=== PATIENT | female | born 1930 | race Caucasian/White ===

== ENCOUNTER 2017-10-17 09:57 | Inpatient (IN) | payer MEDICARE ==
[~2017-10-17] VITALS: Ht 165.1 cm; Wt 82.7 kg
[~2017-10-17 09:57] MED LIST: APIX5TAB3 PO; CALC-1197 PO; CALC0.2535 PO; CHOL10002 PO; CYAN250L PO; FURO20TA4 PO; GLUC-192 PO; LEVO112T52 PO; LISI2.5T2 PO; MAGN400C PO; METO-539 PO; MULT-1074 PO; OMEG-43 PO; OMEP40CA37 PO; POTA10TA21 PO; SIMV20TA5 PO
[2017-10-17 11:07] LABS: BASOPHILS % (AUTO) 0 % (0-1); EOSINOPHILS # (AUTO) 0.1 X10'3 (0-0.9); HEMOGLOBIN 9.5 g/dl (12.0-16.0); LYMPHOCYTES # (AUTO) 0.3 X10'3 (1.1-4.8); LYMPHOCYTES % (AUTO) 4.9 % (21-51); MEAN CORPUSCULAR HEMOGLOBIN 29.8 PG (27.0-31.0); MEAN CORPUSCULAR VOLUME 87.7 FL (78-98); MEAN PLATELET VOLUME 7.4 FL (7.4-10.4); MONOCYTES # (AUTO) 0.3 X10'3 (0-0.9); MONOCYTES % (AUTO) 5.3 % (2-12); NEUTROPHILS % (AUTO) 88.8 % (42-75); PLATELET COUNT 128 X10'3 (140-440); RED BLOOD COUNT 3.19 X10'6 (4.20-5.60); RED CELL DISTRIBUTION WIDTH 17.8 % (11.5-14.5); WHITE BLOOD COUNT 5.7 X10'3 (4.5-11.0)
[2017-10-17 11:30] LABS: ALANINE AMINOTRANSFERASE 13 U/L (12-78); ALBUMIN 1.8 G/DL (3.4-5.0); ALBUMIN/GLOBULIN RATIO 0.5 (1.1-1.5); ALKALINE PHOSPHATASE 109 IU/L (46-116); ANION GAP 9 (8-16); ASPARTATE AMINO TRANSFERASE 32 U/L (10-37); BILIRUBIN,TOTAL 1.1 MG/DL (0.1-1.0); BLOOD UREA NITROGEN 21 MG/DL (7-18); BUN/CREATININE RATIO 14.5 (6.6-38.0); CALCIUM 7.3 MG/DL (8.5-10.1); CHLORIDE 98 MMOL/L (99-107); CREATININE 1.45 MG/DL (0.40-0.90); GLUCOSE 172 MG/DL (70-104); SODIUM 134 MMOL/L (135-145); TOTAL CARBON DIOXIDE 27.5 MMOL/L (24-32); TOTAL PROTEIN 5.2 G/DL (6.4-8.2); eGFR 34 ML/MIN
[2017-10-17 11:31] LABS: TROPONIN I 0.19 NG/ML (0.0-0.05)
[2017-10-17] MEDS ORDERED: magnesium 2GM in 50ml NS 50 ML IV ONE (11:40)
[2017-10-17] MEDS ORDERED: potassium Cl 20 mEq SR tablet PO ONE (11:40)
[2017-10-17] MEDS ORDERED: potassium Cl 10 mEq/100mL bag IV ONE (11:40)
[2017-10-17] MEDS ORDERED: normal saline 1000ML IV soln IVB ONE (11:40)
[2017-10-17] MEDS ORDERED: furosemide 10 MG/1 ML 10ml inj IV ONE (11:40)
[2017-10-17] MEDS ORDERED: potassium 10mEq/100ml NS w/LIDOcaine (10mg/bag) IV ONE (11:50)
[2017-10-17 12:17] LABS: CLARITY,URINE Clear (Clear); COLOR,URINE Yellow (Yellow); GLUCOSE, URINE Negative (Neg); KETONES,URINE Negative (Neg); LEUKOCYTE ESTERASE ,URINE Negative (Neg); NITRITES, URINE Negative (Neg); OCCULT BLOOD,URINE Negative (Neg); PH,URINE 6.5 (4.8-8.0); PROTEIN,URINE Negative (Neg)
[2017-10-17 12:21] LABS: UA COLLECTION TYPE CLN CATCH MIDSTREAM
[2017-10-17] MEDS: K and/or MAG REPLACEMENT MC SCH (13:00)
[2017-10-17] MEDS ORDERED: mag hydrox/Alum hydrox/simeth 30ml oral suspension PO PRN (13:00)
[2017-10-17] MEDS ORDERED: magnesium hydroxide 30ml (MOM) UD suspension PO PRN (13:00)
[2017-10-17] MEDS ORDERED: magnesium Cl slow-release 64mg tablet PO PRN (13:00)
[2017-10-17] MEDS ORDERED: magnesium 4gm in 100ml NS 100 ML IV PRN (13:00)
[2017-10-17] MEDS ORDERED: potassium Cl 40MEQ/NS 500ml 500 ML IV PRN ×2 (13:00)
[2017-10-17] MEDS ORDERED: potassium Cl 20 mEq SR tablet PO PRN (13:00)
[2017-10-17] MEDS ORDERED: magnesium 2GM in 50ml NS 50 ML IV PRN (13:00)
[2017-10-17 21:00] VITALS: BP 98/53
[2017-10-17] MEDS: calcium carbonate/vitamin D3 tablet PO SCH (21:26)
[2017-10-17] MEDS: furosemide 40mg/4ml inj IV SCH (21:26)
[2017-10-17] MEDS: atorvastatin 10mg tablet PO SCH (21:27)
[2017-10-17] MEDS: apixaban 5mg tablet PO SCH (21:49)
[2017-10-17 22:46] VITALS: BP 88/40
[2017-10-17 23:01] VITALS: BP 84/41
[2017-10-18] VITALS (7 sets, daily range): BP systolic 84–114; BP diastolic 40–72
[2017-10-18] MEDS: potassium Cl 20 mEq SR tablet PO PRN ×2 (00:06→04:17)
[2017-10-18 06:48] LABS: HEMATOCRIT 29.5 % (35.0-45.0); HEMOGLOBIN 10.1 g/dl (12.0-16.0); MEAN CORPUSCULAR HEMOGLOBIN 29.2 PG (27.0-31.0); MEAN CORPUSCULAR HGB CONC 34.1 % (33.0-36.5); MEAN CORPUSCULAR VOLUME 85.6 FL (78-98); MEAN PLATELET VOLUME 8.4 FL (7.4-10.4); PLATELET COUNT 114 X10'3 (140-440); RED BLOOD COUNT 3.45 X10'6 (4.20-5.60); RED CELL DISTRIBUTION WIDTH 18.4 % (11.5-14.5); WHITE BLOOD COUNT 5.3 X10'3 (4.5-11.0)
[2017-10-18 07:08] LABS: ALBUMIN 1.7 G/DL (3.4-5.0); ANION GAP 8 (8-16); BLOOD UREA NITROGEN 23 MG/DL (7-18); BUN/CREATININE RATIO 18.7 (6.6-38.0); CALCIUM 7.2 MG/DL (8.5-10.1); CHLORIDE 101 MMOL/L (99-107); CREATININE 1.23 MG/DL (0.40-0.90); GLUCOSE 89 MG/DL (70-104); MAGNESIUM 1.9 MG/DL (1.5-2.4); SODIUM 136 MMOL/L (135-145); TOTAL CARBON DIOXIDE 27.5 MMOL/L (24-32); eGFR 41 ML/MIN
[2017-10-18] MEDS: vitamin D (cholecalciferol) 1,000 unit tablet PO SCH (07:53)
[2017-10-18] MEDS: cyanocobalamin 500mcg tablet PO SCH (07:53)
[2017-10-18] MEDS: magnesium oxide 400mg tablet PO SCH (07:53)
[2017-10-18] MEDS: calcitriol 0.25mcg capsule PO SCH (07:53)
[2017-10-18] MEDS: levoTHYROXINE 100mcg tablet PO SCH (07:53)
[2017-10-18] MEDS: pantoprazole 40mg Tablet.DR PO SCH (07:53)
[2017-10-18] MEDS: calcium carbonate/vitamin D3 tablet PO SCH ×2 (07:53→19:11)
[2017-10-18] MEDS: furosemide 40mg/4ml inj IV SCH ×2 (07:54→19:11)
[2017-10-18] MEDS: apixaban 5mg tablet PO SCH ×2 (07:54→19:11)
[2017-10-18] MEDS: K and/or MAG REPLACEMENT MC SCH (08:00)
[2017-10-18] MEDS: lisinopril 2.5mg tablet PO SCH (08:00)
[2017-10-18] MEDS: metoprolol succinate 25mg (24-HOUR) SR. Tablet PO SCH (08:00)
[2017-10-18] MEDS: POTASSIUM CITRATE 10 MEQ PO SCH (08:00)
[2017-10-18] MEDS: enoxaparin 40mg/0.4ml syringe SQ SCH (08:19)
[2017-10-18] MEDS: atorvastatin 10mg tablet PO SCH (19:11)
[2017-10-19 03:00] VITALS: BP 101/48
[2017-10-19 05:59] LABS: HEMATOCRIT 27.6 % (35.0-45.0); HEMOGLOBIN 9.4 g/dl (12.0-16.0); MEAN CORPUSCULAR HEMOGLOBIN 29.2 PG (27.0-31.0); MEAN CORPUSCULAR HGB CONC 34.2 % (33.0-36.5); MEAN CORPUSCULAR VOLUME 85.5 FL (78-98); MEAN PLATELET VOLUME 7.9 FL (7.4-10.4); PLATELET COUNT 103 X10'3 (140-440); RED BLOOD COUNT 3.23 X10'6 (4.20-5.60); RED CELL DISTRIBUTION WIDTH 18.7 % (11.5-14.5); WHITE BLOOD COUNT 3.8 X10'3 (4.5-11.0)
[2017-10-19 06:10] LABS: ALBUMIN 1.5 G/DL (3.4-5.0); ANION GAP 4 (8-16); BLOOD UREA NITROGEN 21 MG/DL (7-18); BUN/CREATININE RATIO 17.6 (6.6-38.0); CALCIUM 7.3 MG/DL (8.5-10.1); CHLORIDE 101 MMOL/L (99-107); CREATININE 1.19 MG/DL (0.40-0.90); GLUCOSE 94 MG/DL (70-104); MAGNESIUM 1.7 MG/DL (1.5-2.4); POTASSIUM 3.6 MMOL/L (3.5-5.1); SODIUM 134 MMOL/L (135-145); TOTAL CARBON DIOXIDE 28.8 MMOL/L (24-32); eGFR 43 ML/MIN
[2017-10-19 07:00] VITALS: BP 100/54
[2017-10-19] MEDS: calcitriol 0.25mcg capsule PO SCH (07:16)
[2017-10-19] MEDS: calcium carbonate/vitamin D3 tablet PO SCH ×2 (07:16→20:38)
[2017-10-19] MEDS: levoTHYROXINE 100mcg tablet PO SCH (07:16)
[2017-10-19] MEDS: pantoprazole 40mg Tablet.DR PO SCH (07:16)
[2017-10-19] MEDS: apixaban 5mg tablet PO SCH ×2 (07:16→20:38)
[2017-10-19] MEDS: magnesium oxide 400mg tablet PO SCH (07:16)
[2017-10-19] MEDS: cyanocobalamin 500mcg tablet PO SCH (07:16)
[2017-10-19] MEDS: furosemide 40mg/4ml inj IV SCH ×2 (07:16→20:38)
[2017-10-19] MEDS: vitamin D (cholecalciferol) 1,000 unit tablet PO SCH (07:16)
[2017-10-19] MEDS: metoprolol succinate 25mg (24-HOUR) SR. Tablet PO SCH (08:00)
[2017-10-19] MEDS: lisinopril 2.5mg tablet PO SCH (08:00)
[2017-10-19] MEDS: enoxaparin 40mg/0.4ml syringe SQ SCH (08:00)
[2017-10-19] MEDS: K and/or MAG REPLACEMENT MC SCH (08:00)
[2017-10-19] MEDS: POTASSIUM CITRATE 10 MEQ PO SCH (08:00)
[2017-10-19 11:00] VITALS: BP 110/51
[2017-10-19 15:00] VITALS: BP 97/58
[2017-10-19 19:00] VITALS: BP 98/43
[2017-10-19] MEDS: atorvastatin 10mg tablet PO SCH (20:39)
[2017-10-19 23:00] VITALS: BP 103/52
[2017-10-20 03:00] VITALS: BP 104/57
[2017-10-20 07:00] VITALS: BP 115/51
[2017-10-20 07:02] LABS: HEMATOCRIT 31.5 % (35.0-45.0); HEMOGLOBIN 10.8 g/dl (12.0-16.0); MEAN CORPUSCULAR HEMOGLOBIN 29.6 PG (27.0-31.0); MEAN CORPUSCULAR HGB CONC 34.3 % (33.0-36.5); MEAN CORPUSCULAR VOLUME 86.3 FL (78-98); MEAN PLATELET VOLUME 8.4 FL (7.4-10.4); PLATELET COUNT 92 X10'3 (140-440); RED BLOOD COUNT 3.65 X10'6 (4.20-5.60); RED CELL DISTRIBUTION WIDTH 18.7 % (11.5-14.5); WHITE BLOOD COUNT 5.5 X10'3 (4.5-11.0)
[2017-10-20 07:22] LABS: ALBUMIN 1.8 G/DL (3.4-5.0); ANION GAP 6 (8-16); BLOOD UREA NITROGEN 19 MG/DL (7-18); CALCIUM 7.6 MG/DL (8.5-10.1); CHLORIDE 98 MMOL/L (99-107); CREATININE 1.19 MG/DL (0.40-0.90); GLUCOSE 96 MG/DL (70-104); MAGNESIUM 1.7 MG/DL (1.5-2.4); POTASSIUM 4.1 MMOL/L (3.5-5.1); SODIUM 134 MMOL/L (135-145); TOTAL CARBON DIOXIDE 30.1 MMOL/L (24-32); eGFR 43 ML/MIN
[2017-10-20] MEDS: cyanocobalamin 500mcg tablet PO SCH (07:33)
[2017-10-20] MEDS: magnesium oxide 400mg tablet PO SCH (07:33)
[2017-10-20] MEDS: vitamin D (cholecalciferol) 1,000 unit tablet PO SCH (07:33)
[2017-10-20] MEDS: calcium carbonate/vitamin D3 tablet PO SCH ×2 (07:33→19:37)
[2017-10-20] MEDS: furosemide 40mg/4ml inj IV SCH ×2 (07:33→19:37)
[2017-10-20] MEDS: calcitriol 0.25mcg capsule PO SCH (07:33)
[2017-10-20] MEDS: pantoprazole 40mg Tablet.DR PO SCH (07:33)
[2017-10-20] MEDS: levoTHYROXINE 100mcg tablet PO SCH (07:34)
[2017-10-20] MEDS: apixaban 5mg tablet PO SCH ×2 (07:34→19:37)
[2017-10-20] MEDS: metoprolol succinate 25mg (24-HOUR) SR. Tablet PO SCH (08:00)
[2017-10-20] MEDS: K and/or MAG REPLACEMENT MC SCH (08:00)
[2017-10-20] MEDS: POTASSIUM CITRATE 10 MEQ PO SCH (08:00)
[2017-10-20] MEDS: lisinopril 2.5mg tablet PO SCH (08:00)
[2017-10-20 11:00] VITALS: BP 108/63
[2017-10-20 15:00] VITALS: BP 104/48
[2017-10-20 18:00] VITALS: BP 113/41
[2017-10-20] MEDS: ondansetron/PF 4mg/2ml inj IV PRN (18:10)
[2017-10-20] MEDS: atorvastatin 10mg tablet PO SCH (19:37)
[2017-10-20 22:00] VITALS: BP 106/44
[2017-10-21] VITALS (8 sets, daily range): BP systolic 88–127; BP diastolic 43–58
[2017-10-21 06:08] LABS: HEMATOCRIT 28.6 % (35.0-45.0); HEMOGLOBIN 9.7 g/dl (12.0-16.0); MEAN CORPUSCULAR HEMOGLOBIN 29.3 PG (27.0-31.0); MEAN CORPUSCULAR VOLUME 86.2 FL (78-98); MEAN PLATELET VOLUME 8.5 FL (7.4-10.4); PLATELET COUNT 78 X10'3 (140-440); RED BLOOD COUNT 3.31 X10'6 (4.20-5.60); RED CELL DISTRIBUTION WIDTH 18.6 % (11.5-14.5); WHITE BLOOD COUNT 4.6 X10'3 (4.5-11.0)
[2017-10-21 07:17] LABS: ALBUMIN 1.6 G/DL (3.4-5.0); ANION GAP 5 (8-16); BLOOD UREA NITROGEN 19 MG/DL (7-18); BUN/CREATININE RATIO 16.5 (6.6-38.0); CALCIUM 7.1 MG/DL (8.5-10.1); CHLORIDE 98 MMOL/L (99-107); CREATININE 1.15 MG/DL (0.40-0.90); GLUCOSE 91 MG/DL (70-104); MAGNESIUM 1.6 MG/DL (1.5-2.4); POTASSIUM 3.9 MMOL/L (3.5-5.1); SODIUM 133 MMOL/L (135-145); TOTAL CARBON DIOXIDE 29.9 MMOL/L (24-32); eGFR 44 ML/MIN
[2017-10-21] MEDS: vitamin D (cholecalciferol) 1,000 unit tablet PO SCH (07:56)
[2017-10-21] MEDS: apixaban 5mg tablet PO SCH ×2 (07:56→21:27)
[2017-10-21] MEDS: magnesium oxide 400mg tablet PO SCH (07:56)
[2017-10-21] MEDS: cyanocobalamin 500mcg tablet PO SCH (07:57)
[2017-10-21] MEDS: levoTHYROXINE 100mcg tablet PO SCH (07:57)
[2017-10-21] MEDS: calcitriol 0.25mcg capsule PO SCH (07:57)
[2017-10-21] MEDS: pantoprazole 40mg Tablet.DR PO SCH (07:58)
[2017-10-21] MEDS: calcium carbonate/vitamin D3 tablet PO SCH ×2 (07:58→21:26)
[2017-10-21] MEDS: acetaminophen 325mg tablet PO PRN ×2 (07:58→21:28)
[2017-10-21] MEDS: metoprolol succinate 25mg (24-HOUR) SR. Tablet PO SCH (08:00)
[2017-10-21] MEDS: K and/or MAG REPLACEMENT MC SCH (08:00)
[2017-10-21] MEDS: POTASSIUM CITRATE 10 MEQ PO SCH (08:00)
[2017-10-21] MEDS: lisinopril 2.5mg tablet PO SCH (08:00)
[2017-10-21] MEDS: furosemide 40mg/4ml inj IV SCH ×2 (08:00→20:00)
[2017-10-21] MEDS: atorvastatin 10mg tablet PO SCH (21:27)
[2017-10-22 02:00] VITALS: BP 126/48
[2017-10-22 06:10] LABS: HEMATOCRIT 29.3 % (35.0-45.0); MEAN CORPUSCULAR HEMOGLOBIN 29.3 PG (27.0-31.0); MEAN CORPUSCULAR HGB CONC 34.2 % (33.0-36.5); MEAN CORPUSCULAR VOLUME 85.7 FL (78-98); MEAN PLATELET VOLUME 8.9 FL (7.4-10.4); PLATELET COUNT 70 X10'3 (140-440); RED BLOOD COUNT 3.43 X10'6 (4.20-5.60); RED CELL DISTRIBUTION WIDTH 18.9 % (11.5-14.5); WHITE BLOOD COUNT 3.4 X10'3 (4.5-11.0)
[2017-10-22 06:29] LABS: ALBUMIN 1.6 G/DL (3.4-5.0); ANION GAP 5 (8-16); BLOOD UREA NITROGEN 22 MG/DL (7-18); BUN/CREATININE RATIO 18.2 (6.6-38.0); CALCIUM 7.7 MG/DL (8.5-10.1); CHLORIDE 98 MMOL/L (99-107); CREATININE 1.21 MG/DL (0.40-0.90); GLUCOSE 81 MG/DL (70-104); MAGNESIUM 1.8 MG/DL (1.5-2.4); POTASSIUM 3.8 MMOL/L (3.5-5.1); SODIUM 135 MMOL/L (135-145); TOTAL CARBON DIOXIDE 31.6 MMOL/L (24-32); eGFR 42 ML/MIN
[2017-10-22 06:35] VITALS: BP 83/48
[2017-10-22] MEDS: K and/or MAG REPLACEMENT MC SCH (07:09)
[2017-10-22] MEDS: pantoprazole 40mg Tablet.DR PO SCH (07:30)
[2017-10-22] MEDS: POTASSIUM CITRATE 10 MEQ PO SCH (08:00)
[2017-10-22] MEDS: lisinopril 2.5mg tablet PO SCH (08:00)
[2017-10-22] MEDS: magnesium oxide 400mg tablet PO SCH (08:00)
[2017-10-22] MEDS: metoprolol succinate 25mg (24-HOUR) SR. Tablet PO SCH (08:00)
[2017-10-22] MEDS: furosemide 40mg/4ml inj IV SCH ×2 (08:00→19:54)
[2017-10-22] MEDS: apixaban 5mg tablet PO SCH ×2 (10:31→19:55)
[2017-10-22] MEDS: vitamin D (cholecalciferol) 1,000 unit tablet PO SCH (10:32)
[2017-10-22] MEDS: levoTHYROXINE 100mcg tablet PO SCH (10:33)
[2017-10-22] MEDS: calcitriol 0.25mcg capsule PO SCH (10:33)
[2017-10-22] MEDS: calcium carbonate/vitamin D3 tablet PO SCH ×2 (10:33→19:55)
[2017-10-22] MEDS: cyanocobalamin 500mcg tablet PO SCH (10:34)
[2017-10-22 11:00] VITALS: BP 101/59
[2017-10-22 15:00] VITALS: BP 110/63
[2017-10-22 18:00] VITALS: BP 98/58
[2017-10-22] MEDS: vancomycin/NS 1 GM ADD-VANTAGE 250 ML IV SCH ×2 (19:52→22:36)
[2017-10-22] MEDS: atorvastatin 10mg tablet PO SCH (21:00)
[2017-10-22 22:00] VITALS: BP 100/43
[2017-10-23] MEDS ORDERED: aztreonam 1,000MG vial ONE (01:45)
[2017-10-23] MEDS: aztreonam inj. 1,000 MG in normal saline 100ml IV soln 100 ML IV SCH ×2 (01:45→08:03)
[2017-10-23 02:00] VITALS: BP 94/47
[2017-10-23] MEDS: acetaminophen 325mg tablet PO PRN (04:18)
[2017-10-23 05:47] LABS: BASOPHILS % (AUTO) 0.2 % (0-1); EOSINOPHILS # (AUTO) 0.1 X10'3 (0-0.9); EOSINOPHILS % (AUTO) 1.2 % (0-6); HEMATOCRIT 28.1 % (35.0-45.0); HEMOGLOBIN 9.7 g/dl (12.0-16.0); LYMPHOCYTES # (AUTO) 0.4 X10'3 (1.1-4.8); LYMPHOCYTES % (AUTO) 8.4 % (21-51); MEAN CORPUSCULAR HEMOGLOBIN 29.7 PG (27.0-31.0); MEAN CORPUSCULAR HGB CONC 34.7 % (33.0-36.5); MEAN CORPUSCULAR VOLUME 85.6 FL (78-98); MEAN PLATELET VOLUME 9.1 FL (7.4-10.4); MONOCYTES # (AUTO) 0.3 X10'3 (0-0.9); NEUTROPHILS # (AUTO) 3.6 X10'3 (1.8-7.7); NEUTROPHILS % (AUTO) 83.2 % (42-75); PLATELET COUNT 72 X10'3 (140-440); RED BLOOD COUNT 3.28 X10'6 (4.20-5.60); RED CELL DISTRIBUTION WIDTH 19.3 % (11.5-14.5); WHITE BLOOD COUNT 4.4 X10'3 (4.5-11.0)
[2017-10-23 06:00] VITALS: BP 98/55
[2017-10-23 06:53] LABS: ALANINE AMINOTRANSFERASE 18 U/L (12-78); ALBUMIN 1.6 G/DL (3.4-5.0); ALBUMIN/GLOBULIN RATIO 0.5 (1.1-1.5); ALKALINE PHOSPHATASE 92 IU/L (46-116); ANION GAP 7 (8-16); ASPARTATE AMINO TRANSFERASE 32 U/L (10-37); BILIRUBIN,TOTAL 1.3 MG/DL (0.1-1.0); BLOOD UREA NITROGEN 22 MG/DL (7-18); BUN/CREATININE RATIO 17.9 (6.6-38.0); CALCIUM 7.1 MG/DL (8.5-10.1); CHLORIDE 98 MMOL/L (99-107); CREATININE 1.23 MG/DL (0.40-0.90); GLUCOSE 88 MG/DL (70-104); MAGNESIUM 1.8 MG/DL (1.5-2.4); SODIUM 133 MMOL/L (135-145); TOTAL PROTEIN 4.8 G/DL (6.4-8.2); eGFR 41 ML/MIN
[2017-10-23] MEDS: vitamin D (cholecalciferol) 1,000 unit tablet PO SCH (08:00)
[2017-10-23] MEDS: POTASSIUM CITRATE 10 MEQ PO SCH (08:00)
[2017-10-23] MEDS: lisinopril 2.5mg tablet PO SCH (08:00)
[2017-10-23] MEDS: K and/or MAG REPLACEMENT MC SCH (08:00)
[2017-10-23] MEDS: furosemide 40mg/4ml inj IV SCH ×2 (08:00→19:27)
[2017-10-23] MEDS: metoprolol succinate 25mg (24-HOUR) SR. Tablet PO SCH (08:00)
[2017-10-23] MEDS: levoTHYROXINE 100mcg tablet PO SCH (08:02)
[2017-10-23] MEDS: pantoprazole 40mg Tablet.DR PO SCH (08:02)
[2017-10-23] MEDS: calcitriol 0.25mcg capsule PO SCH (08:04)
[2017-10-23] MEDS: calcium carbonate/vitamin D3 tablet PO SCH ×2 (08:04→19:31)
[2017-10-23] MEDS: magnesium oxide 400mg tablet PO SCH (08:04)
[2017-10-23] MEDS: apixaban 5mg tablet PO SCH ×2 (08:04→19:31)
[2017-10-23] MEDS: cyanocobalamin 500mcg tablet PO SCH (08:06)
[2017-10-23] MEDS: CefTRIAXone 2gm/NS 100ml IVPB 100 ML IV SCH (10:42)
[2017-10-23 11:00] VITALS: BP 104/55
[2017-10-23 15:00] VITALS: BP 98/46
[2017-10-23 19:00] VITALS: BP 97/61
[2017-10-23] MEDS ORDERED: vancomycin inj 1,250 MG in normal saline 250ml IV soln 250 ML IV SCH (19:00)
[2017-10-23] MEDS ORDERED: vancomycin/NS 1 GM ADD-VANTAGE 250 ML IV SCH (19:00)
[2017-10-23] MEDS: lactobacillus rhamnosus 10,000 MMU CELLS/CAPSULE PO SCH (19:31)
[2017-10-23] MEDS: atorvastatin 10mg tablet PO SCH (21:54)
[2017-10-23 23:00] VITALS: BP 115/45
[2017-10-24 03:00] VITALS: BP 93/46
[2017-10-24 05:56] LABS: ALBUMIN 1.4 G/DL (3.4-5.0); ANION GAP 3 (8-16); BLOOD UREA NITROGEN 20 MG/DL (7-18); BUN/CREATININE RATIO 17.7 (6.6-38.0); CALCIUM 7.2 MG/DL (8.5-10.1); CHLORIDE 99 MMOL/L (99-107); CREATININE 1.13 MG/DL (0.40-0.90); GLUCOSE 85 MG/DL (70-104); MAGNESIUM 1.8 MG/DL (1.5-2.4); POTASSIUM 3.7 MMOL/L (3.5-5.1); SODIUM 134 MMOL/L (135-145); TOTAL CARBON DIOXIDE 31.6 MMOL/L (24-32); eGFR 45 ML/MIN
[2017-10-24 06:00] VITALS: BP_SYST 102; BP_SYST 158; BP_DIAS 37; BP_DIAS 74
[2017-10-24] MEDS: levoTHYROXINE 100mcg tablet PO SCH (07:07)
[2017-10-24] MEDS: POTASSIUM CITRATE 10 MEQ PO SCH (08:00)
[2017-10-24] MEDS: K and/or MAG REPLACEMENT MC SCH (08:00)
[2017-10-24] MEDS: metoprolol succinate 25mg (24-HOUR) SR. Tablet PO SCH (08:00)
[2017-10-24] MEDS: lisinopril 2.5mg tablet PO SCH (08:00)
[2017-10-24] MEDS: furosemide 40mg/4ml inj IV SCH (08:00)
[2017-10-24] MEDS: calcitriol 0.25mcg capsule PO SCH (09:29)
[2017-10-24] MEDS: apixaban 5mg tablet PO SCH ×2 (09:30→20:25)
[2017-10-24] MEDS: calcium carbonate/vitamin D3 tablet PO SCH ×2 (09:30→20:25)
[2017-10-24] MEDS: lactobacillus rhamnosus 10,000 MMU CELLS/CAPSULE PO SCH (09:30)
[2017-10-24] MEDS: magnesium oxide 400mg tablet PO SCH ×2 (09:30→15:50)
[2017-10-24] MEDS: pantoprazole 40mg Tablet.DR PO SCH (09:31)
[2017-10-24] MEDS: vitamin D (cholecalciferol) 1,000 unit tablet PO SCH (09:31)
[2017-10-24] MEDS: CefTRIAXone 2gm/NS 100ml IVPB 100 ML IV SCH (09:31)
[2017-10-24] MEDS: cyanocobalamin 500mcg tablet PO SCH (09:31)
[2017-10-24] MEDS: ampicillin inj 2 GM in normal saline 100ml IV soln 100 ML IV SCH ×2 (12:49→20:25)
[2017-10-24] MEDS: gentamicin inj 80 MG in normal saline 100ml IV soln 98 ML IV SCH (13:24)
[2017-10-24] MEDS ORDERED: potassium Cl 20 mEq SR tablet PO PRN ×2 (14:05)
[2017-10-24] MEDS ORDERED: potassium Cl 40MEQ/NS 500ml 500 ML IV PRN ×2 (14:05)
[2017-10-24 15:15] VITALS: BP 106/60
[2017-10-24] MEDS ORDERED: lisinopril 2.5mg tablet PO PRN (15:55)
[2017-10-24 19:00] VITALS: BP 106/54
[2017-10-24] MEDS: atorvastatin 10mg tablet PO SCH (20:25)
[2017-10-24 23:00] VITALS: BP 115/43
[2017-10-25] MEDS: gentamicin inj 80 MG in normal saline 100ml IV soln 98 ML IV SCH (01:47)
[2017-10-25] MEDS: ampicillin inj 2 GM in normal saline 100ml IV soln 100 ML IV SCH ×4 (02:44→20:06)
[2017-10-25 03:00] VITALS: BP 95/50
[2017-10-25 06:00] VITALS: BP 103/51
[2017-10-25 07:08] LABS: ALBUMIN 1.4 G/DL (3.4-5.0); ANION GAP 5 (8-16); BLOOD UREA NITROGEN 16 MG/DL (7-18); BUN/CREATININE RATIO 17.6 (6.6-38.0); CALCIUM 7.4 MG/DL (8.5-10.1); CHLORIDE 100 MMOL/L (99-107); CREATININE 0.91 MG/DL (0.40-0.90); GLUCOSE 85 MG/DL (70-104); SODIUM 134 MMOL/L (135-145); TOTAL CARBON DIOXIDE 28.7 MMOL/L (24-32); eGFR 58 ML/MIN
[2017-10-25] MEDS: K and/or MAG REPLACEMENT MC SCH (08:00)
[2017-10-25] MEDS: magnesium oxide 400mg tablet PO SCH ×2 (08:00→08:27)
[2017-10-25] MEDS: calcium carbonate/vitamin D3 tablet PO SCH ×2 (08:26→20:05)
[2017-10-25] MEDS: cyanocobalamin 500mcg tablet PO SCH (08:27)
[2017-10-25] MEDS: pantoprazole 40mg Tablet.DR PO SCH (08:27)
[2017-10-25] MEDS: calcitriol 0.25mcg capsule PO SCH (08:28)
[2017-10-25] MEDS: apixaban 5mg tablet PO SCH ×2 (08:28→20:05)
[2017-10-25] MEDS: vitamin D (cholecalciferol) 1,000 unit tablet PO SCH (08:29)
[2017-10-25] MEDS: furosemide 20MG tablet PO SCH (08:29)
[2017-10-25] MEDS: levoTHYROXINE 100mcg tablet PO SCH (08:35)
[2017-10-25] MEDS: metoprolol succinate 25mg (24-HOUR) SR. Tablet PO SCH (08:35)
[2017-10-25 11:00] VITALS: BP 104/55
[2017-10-25 15:00] VITALS: BP 93/47
[2017-10-25 18:35] VITALS: BP 89/58
[2017-10-25] MEDS ORDERED: gentamicin inj 60 MG in normal saline 100ml IV soln 98.5 ML IV SCH (20:00)
[2017-10-25] MEDS ORDERED: gentamicin in saline, iso-osm 80 MG/50 ML premix IV SCH (20:00)
[2017-10-25] MEDS: atorvastatin 10mg tablet PO SCH (20:05)
[2017-10-25 23:00] VITALS: BP 91/42
[2017-10-26 01:34] LABS: BASOPHILS % (AUTO) 0.3 % (0-1); EOSINOPHILS % (AUTO) 0.9 % (0-6); HEMATOCRIT 26.3 % (35.0-45.0); HEMOGLOBIN 8.8 g/dl (12.0-16.0); LYMPHOCYTES # (AUTO) 0.4 X10'3 (1.1-4.8); LYMPHOCYTES % (AUTO) 12.8 % (21-51); MEAN CORPUSCULAR HEMOGLOBIN 29.1 PG (27.0-31.0); MEAN CORPUSCULAR HGB CONC 33.5 % (33.0-36.5); MEAN CORPUSCULAR VOLUME 86.7 FL (78-98); MEAN PLATELET VOLUME 8.8 FL (7.4-10.4); MONOCYTES # (AUTO) 0.2 X10'3 (0-0.9); MONOCYTES % (AUTO) 5.9 % (2-12); NEUTROPHILS # (AUTO) 2.7 X10'3 (1.8-7.7); NEUTROPHILS % (AUTO) 80.1 % (42-75); PLATELET COUNT 80 X10'3 (140-440); RED BLOOD COUNT 3.03 X10'6 (4.20-5.60); WHITE BLOOD COUNT 3.3 X10'3 (4.5-11.0)
[2017-10-26] MEDS: ampicillin inj 2 GM in normal saline 100ml IV soln 100 ML IV SCH ×4 (02:02→20:14)
[2017-10-26 02:03] LABS: ALBUMIN 1.3 G/DL (3.4-5.0); ANION GAP 6 (8-16); BLOOD UREA NITROGEN 16 MG/DL (7-18); CALCIUM 7.3 MG/DL (8.5-10.1); CHLORIDE 101 MMOL/L (99-107); CREATININE 0.89 MG/DL (0.40-0.90); GLUCOSE 94 MG/DL (70-104); MAGNESIUM 1.8 MG/DL (1.5-2.4); POTASSIUM 3.7 MMOL/L (3.5-5.1); SODIUM 135 MMOL/L (135-145); TOTAL CARBON DIOXIDE 28.5 MMOL/L (24-32); eGFR 60 ML/MIN
[2017-10-26 02:10] VITALS: BP 97/51
[2017-10-26] MEDS: levoTHYROXINE 100mcg tablet PO SCH (07:45)
[2017-10-26] MEDS: calcitriol 0.25mcg capsule PO SCH (07:46)
[2017-10-26] MEDS: cyanocobalamin 500mcg tablet PO SCH (07:46)
[2017-10-26] MEDS: magnesium oxide 400mg tablet PO SCH ×2 (07:47→08:00)
[2017-10-26] MEDS: apixaban 5mg tablet PO SCH ×2 (07:47→20:13)
[2017-10-26] MEDS: calcium carbonate/vitamin D3 tablet PO SCH ×2 (07:47→20:13)
[2017-10-26] MEDS: metoprolol succinate 25mg (24-HOUR) SR. Tablet PO SCH (07:48)
[2017-10-26] MEDS: furosemide 20MG tablet PO SCH (07:48)
[2017-10-26] MEDS: pantoprazole 40mg Tablet.DR PO SCH (07:48)
[2017-10-26] MEDS: vitamin D (cholecalciferol) 1,000 unit tablet PO SCH (07:48)
[2017-10-26] MEDS: K and/or MAG REPLACEMENT MC SCH (08:00)
[2017-10-26 10:58] LABS: CLARITY,URINE SLIGHTLY CLOUDY (Clear); COLOR,URINE YELLOW (Yellow); GLUCOSE, URINE NEGATIVE (Neg); KETONES,URINE NEGATIVE (Neg); LEUKOCYTE ESTERASE ,URINE NEGATIVE (Neg); NITRITES, URINE NEGATIVE (Neg); OCCULT BLOOD,URINE SMALL (Neg); PH,URINE 5.5 (4.8-8.0); PROTEIN,URINE NEGATIVE (Neg)
[2017-10-26 11:00] VITALS: BP 92/44
[2017-10-26 11:02] LABS: UA COLLECTION TYPE CLN CATCH MIDSTREAM
[2017-10-26 11:03] LABS: SQUAMOUS EPITHELIAL CELL,UR MANY /LPF (FEW)
[2017-10-26 11:04] LABS: MUCUS STRANDS FEW /LPF (Neg)
[2017-10-26 11:05] LABS: BACTERIA,URINE 1+ /HPF (Neg); RBC,URINE 0-2 /HPF (0-2); WBC,URINE 0-4 /HPF (0-4)
[2017-10-26] MEDS: clindamycin 600mg/D5W 50ml 50 ML IV SCH ×3 (11:25→23:57)
[2017-10-26 15:00] VITALS: BP 94/50
[2017-10-26] MEDS ORDERED: VANCOMYCIN LEVEL IV NR (18:30)
[2017-10-26 19:00] VITALS: BP 102/50
[2017-10-26] MEDS: atorvastatin 10mg tablet PO SCH (20:13)
[2017-10-26 23:00] VITALS: BP 94/47
[2017-10-27] MEDS: ampicillin inj 2 GM in normal saline 100ml IV soln 100 ML IV SCH ×4 (02:15→21:58)
[2017-10-27 03:00] VITALS: BP 96/48
[2017-10-27 06:35] VITALS: BP 92/44
[2017-10-27 06:52] LABS: ALBUMIN 1.4 G/DL (3.4-5.0); ANION GAP 6 (8-16); BLOOD UREA NITROGEN 17 MG/DL (7-18); CALCIUM 7.5 MG/DL (8.5-10.1); CHLORIDE 99 MMOL/L (99-107); CREATININE 1.06 MG/DL (0.40-0.90); GLUCOSE 86 MG/DL (70-104); MAGNESIUM 1.8 MG/DL (1.5-2.4); SODIUM 132 MMOL/L (135-145); TOTAL CARBON DIOXIDE 27.3 MMOL/L (24-32); eGFR 49 ML/MIN
[2017-10-27] MEDS: K and/or MAG REPLACEMENT MC SCH (07:18)
[2017-10-27] MEDS: pantoprazole 40mg Tablet.DR PO SCH (07:30)
[2017-10-27] MEDS: metoprolol succinate 25mg (24-HOUR) SR. Tablet PO SCH (08:00)
[2017-10-27] MEDS: magnesium oxide 400mg tablet PO SCH ×2 (08:00)
[2017-10-27] MEDS: furosemide 20MG tablet PO SCH (08:00)
[2017-10-27] MEDS: vitamin D (cholecalciferol) 1,000 unit tablet PO SCH (09:21)
[2017-10-27] MEDS: levoTHYROXINE 100mcg tablet PO SCH (09:22)
[2017-10-27] MEDS: cyanocobalamin 500mcg tablet PO SCH (09:22)
[2017-10-27] MEDS: calcitriol 0.25mcg capsule PO SCH (09:23)
[2017-10-27] MEDS: apixaban 5mg tablet PO SCH ×2 (09:23→21:57)
[2017-10-27] MEDS: calcium carbonate/vitamin D3 tablet PO SCH ×2 (09:24→21:57)
[2017-10-27] MEDS: clindamycin 600mg/D5W 50ml 50 ML IV SCH ×2 (09:24→16:00)
[2017-10-27 11:00] VITALS: BP 90/47
[2017-10-27 15:00] VITALS: BP 100/44
[2017-10-27 18:00] VITALS: BP 106/52
[2017-10-27] MEDS: atorvastatin 10mg tablet PO SCH (21:57)
[2017-10-27 22:00] VITALS: BP 94/41
[2017-10-28] MEDS: clindamycin 600mg/D5W 50ml 50 ML IV SCH ×4 (00:27→23:59)
[2017-10-28 02:00] VITALS: BP 101/35
[2017-10-28] MEDS: ampicillin inj 2 GM in normal saline 100ml IV soln 100 ML IV SCH ×4 (02:20→19:43)
[2017-10-28 06:17] LABS: MAGNESIUM 1.9 MG/DL (1.5-2.4); POTASSIUM 3.7 MMOL/L (3.5-5.1)
[2017-10-28 06:35] VITALS: BP 96/46
[2017-10-28] MEDS: furosemide 20MG tablet PO SCH (07:26)
[2017-10-28] MEDS: vitamin D (cholecalciferol) 1,000 unit tablet PO SCH (07:41)
[2017-10-28] MEDS: pantoprazole 40mg Tablet.DR PO SCH (07:41)
[2017-10-28] MEDS: cyanocobalamin 500mcg tablet PO SCH (07:41)
[2017-10-28] MEDS: calcium carbonate/vitamin D3 tablet PO SCH ×2 (07:41→19:43)
[2017-10-28] MEDS: levoTHYROXINE 100mcg tablet PO SCH (07:41)
[2017-10-28] MEDS: apixaban 5mg tablet PO SCH ×2 (07:42→19:43)
[2017-10-28] MEDS: calcitriol 0.25mcg capsule PO SCH (07:42)
[2017-10-28] MEDS: metoprolol succinate 25mg (24-HOUR) SR. Tablet PO SCH (07:43)
[2017-10-28] MEDS: magnesium oxide 400mg tablet PO SCH ×2 (07:51→07:52)
[2017-10-28] MEDS: K and/or MAG REPLACEMENT MC SCH (08:00)
[2017-10-28 11:00] VITALS: BP 104/58
[2017-10-28] MEDS: ondansetron/PF 4mg/2ml inj IV PRN (15:31)
[2017-10-28 18:00] VITALS: BP 109/59
[2017-10-28] MEDS ORDERED: normal saline 500ml IV soln 500 ML IV ONE (18:15)
[2017-10-28] MEDS: normal saline 1000ml 1,000 ML IV SCH (19:38)
[2017-10-28] MEDS: atorvastatin 10mg tablet PO SCH (20:38)
[2017-10-28 22:00] VITALS: BP 96/56
[2017-10-29] MEDS: ampicillin inj 2 GM in normal saline 100ml IV soln 100 ML IV SCH ×4 (01:36→20:44)
[2017-10-29 02:00] VITALS: BP 93/46
[2017-10-29 05:37] LABS: MAGNESIUM 1.5 MG/DL (1.5-2.4); POTASSIUM 3.2 MMOL/L (3.5-5.1)
[2017-10-29 06:00] VITALS: BP 99/49
[2017-10-29] MEDS: magnesium oxide 400mg tablet PO SCH ×2 (07:15→08:00)
[2017-10-29] MEDS: calcitriol 0.25mcg capsule PO SCH (07:15)
[2017-10-29] MEDS: apixaban 5mg tablet PO SCH ×2 (07:15→20:44)
[2017-10-29] MEDS: calcium carbonate/vitamin D3 tablet PO SCH ×2 (07:15→20:44)
[2017-10-29] MEDS: pantoprazole 40mg Tablet.DR PO SCH (07:15)
[2017-10-29] MEDS: vitamin D (cholecalciferol) 1,000 unit tablet PO SCH (07:15)
[2017-10-29] MEDS: levoTHYROXINE 100mcg tablet PO SCH (07:15)
[2017-10-29] MEDS: cyanocobalamin 500mcg tablet PO SCH (07:15)
[2017-10-29] MEDS: clindamycin 600mg/D5W 50ml 50 ML IV SCH ×2 (07:17→15:51)
[2017-10-29] MEDS: K and/or MAG REPLACEMENT MC SCH (08:54)
[2017-10-29] MEDS ORDERED: potassium Cl 20 mEq SR tablet PO PRN (10:35)
[2017-10-29] MEDS ORDERED: magnesium 2GM in 50ml NS 50 ML IV PRN (10:35)
[2017-10-29] MEDS ORDERED: magnesium Cl slow-release 64mg tablet PO PRN (10:35)
[2017-10-29] MEDS ORDERED: potassium Cl 40MEQ/NS 500ml 500 ML IV PRN ×2 (10:35)
[2017-10-29] MEDS ORDERED: magnesium 4gm in 100ml NS 100 ML IV PRN (10:35)
[2017-10-29] MEDS: potassium Cl 20 mEq SR tablet PO PRN ×2 (10:41→14:47)
[2017-10-29 11:00] VITALS: BP 104/57
[2017-10-29] MEDS: normal saline 1000ml 1,000 ML IV SCH ×2 (14:14→17:50)
[2017-10-29 15:00] VITALS: BP 118/58
[2017-10-29 19:00] VITALS: BP 109/48
[2017-10-29] MEDS ORDERED: lactobacillus rhamnosus 10,000 MMU CELLS/CAPSULE PO SCH (20:00)
[2017-10-29] MEDS: atorvastatin 10mg tablet PO SCH (20:44)
[2017-10-29 23:00] VITALS: BP 117/64
[2017-10-30] VITALS (7 sets, daily range): BP systolic 95–115; BP diastolic 52–65
[2017-10-30] MEDS: clindamycin 600mg/D5W 50ml 50 ML IV SCH ×3 (00:55→15:50)
[2017-10-30] MEDS: ampicillin inj 2 GM in normal saline 100ml IV soln 100 ML IV SCH ×4 (02:45→20:51)
[2017-10-30] MEDS: calcitriol 0.25mcg capsule PO SCH (07:06)
[2017-10-30] MEDS: vitamin D (cholecalciferol) 1,000 unit tablet PO SCH (07:07)
[2017-10-30] MEDS: levoTHYROXINE 100mcg tablet PO SCH (07:07)
[2017-10-30] MEDS: magnesium oxide 400mg tablet PO SCH ×2 (07:07→08:00)
[2017-10-30] MEDS: apixaban 5mg tablet PO SCH ×2 (07:07→19:59)
[2017-10-30] MEDS: pantoprazole 40mg Tablet.DR PO SCH (07:07)
[2017-10-30] MEDS: cyanocobalamin 500mcg tablet PO SCH (07:07)
[2017-10-30] MEDS: calcium carbonate/vitamin D3 tablet PO SCH ×2 (07:07→19:59)
[2017-10-30] MEDS: K and/or MAG REPLACEMENT MC SCH (08:00)
[2017-10-30] MEDS: furosemide 40mg tablet PO SCH (11:28)
[2017-10-30] MEDS: atorvastatin 10mg tablet PO SCH (19:59)
[2017-10-31] VITALS: BP 106/57
[2017-10-31] MEDS: clindamycin 600mg/D5W 50ml 50 ML IV SCH ×4 (00:27→23:37)
[2017-10-31] MEDS: ampicillin inj 2 GM in normal saline 100ml IV soln 100 ML IV SCH ×4 (02:00→20:05)
[2017-10-31 07:30] VITALS: BP 113/59
[2017-10-31] MEDS: levoTHYROXINE 100mcg tablet PO SCH (07:39)
[2017-10-31] MEDS: calcium carbonate/vitamin D3 tablet PO SCH ×2 (07:39→20:06)
[2017-10-31] MEDS: vitamin D (cholecalciferol) 1,000 unit tablet PO SCH (07:41)
[2017-10-31] MEDS: calcitriol 0.25mcg capsule PO SCH (07:41)
[2017-10-31] MEDS: magnesium oxide 400mg tablet PO SCH ×2 (07:42)
[2017-10-31] MEDS: cyanocobalamin 500mcg tablet PO SCH (07:42)
[2017-10-31] MEDS: apixaban 5mg tablet PO SCH ×2 (07:43→20:06)
[2017-10-31] MEDS: pantoprazole 40mg Tablet.DR PO SCH (07:43)
[2017-10-31] MEDS: furosemide 40mg tablet PO SCH (07:43)
[2017-10-31] MEDS: K and/or MAG REPLACEMENT MC SCH (07:43)
[2017-10-31 11:00] VITALS: BP 99/57
[2017-10-31 18:00] VITALS: BP 90/41
[2017-10-31] MEDS: atorvastatin 10mg tablet PO SCH (20:05)
[2017-11-01] VITALS (7 sets, daily range): BP systolic 99–141; BP diastolic 48–62
[2017-11-01] MEDS: ampicillin inj 2 GM in normal saline 100ml IV soln 100 ML IV SCH ×4 (02:58→20:32)
[2017-11-01] MEDS: magnesium oxide 400mg tablet PO SCH ×2 (08:00→09:33)
[2017-11-01] MEDS: K and/or MAG REPLACEMENT MC SCH (08:00)
[2017-11-01] MEDS: levoTHYROXINE 100mcg tablet PO SCH (09:29)
[2017-11-01] MEDS: calcium carbonate/vitamin D3 tablet PO SCH ×2 (09:30→20:32)
[2017-11-01] MEDS: pantoprazole 40mg Tablet.DR PO SCH (09:32)
[2017-11-01] MEDS: apixaban 5mg tablet PO SCH ×2 (09:32→20:32)
[2017-11-01] MEDS: cyanocobalamin 500mcg tablet PO SCH (09:34)
[2017-11-01] MEDS: calcitriol 0.25mcg capsule PO SCH (09:34)
[2017-11-01] MEDS: furosemide 40mg tablet PO SCH (09:35)
[2017-11-01] MEDS: vitamin D (cholecalciferol) 1,000 unit tablet PO SCH (09:35)
[2017-11-01] MEDS: clindamycin 600mg/D5W 50ml 50 ML IV SCH ×3 (10:35→23:31)
[2017-11-01] MEDS ORDERED: potassium Cl 40MEQ/NS 500ml 500 ML IV PRN ×2 (11:35)
[2017-11-01] MEDS ORDERED: magnesium 4gm in 100ml NS 100 ML IV PRN (11:35)
[2017-11-01] MEDS ORDERED: potassium Cl 20 mEq SR tablet PO PRN ×2 (11:35)
[2017-11-01] MEDS ORDERED: magnesium 2GM in 50ml NS 50 ML IV PRN (11:35)
[2017-11-01] MEDS ORDERED: magnesium Cl slow-release 64mg tablet PO PRN (11:35)
[2017-11-01 11:47] LABS: BASOPHILS % (AUTO) 0.2 % (0-1); EOSINOPHILS % (AUTO) 0 % (0-6); HEMATOCRIT 28.6 % (35.0-45.0); HEMOGLOBIN 9.7 g/dl (12.0-16.0); LYMPHOCYTES # (AUTO) 0.5 X10'3 (1.1-4.8); MEAN CORPUSCULAR HEMOGLOBIN 29.6 PG (27.0-31.0); MEAN CORPUSCULAR VOLUME 87.1 FL (78-98); MEAN PLATELET VOLUME 7.7 FL (7.4-10.4); MONOCYTES # (AUTO) 0.3 X10'3 (0-0.9); MONOCYTES % (AUTO) 5.3 % (2-12); NEUTROPHILS # (AUTO) 4.4 X10'3 (1.8-7.7); NEUTROPHILS % (AUTO) 85.5 % (42-75); PLATELET COUNT 172 X10'3 (140-440); RED BLOOD COUNT 3.29 X10'6 (4.20-5.60); RED CELL DISTRIBUTION WIDTH 22.6 % (11.5-14.5); WHITE BLOOD COUNT 5.1 X10'3 (4.5-11.0)
[2017-11-01 12:01] LABS: ALANINE AMINOTRANSFERASE 23 U/L (12-78); ALBUMIN 1.6 G/DL (3.4-5.0); ALBUMIN/GLOBULIN RATIO 0.4 (1.1-1.5); ALKALINE PHOSPHATASE 96 IU/L (46-116); ANION GAP 8 (8-16); ASPARTATE AMINO TRANSFERASE 37 U/L (10-37); BILIRUBIN,TOTAL 0.8 MG/DL (0.1-1.0); BLOOD UREA NITROGEN 14 MG/DL (7-18); BUN/CREATININE RATIO 12.1 (6.6-38.0); CHLORIDE 100 MMOL/L (99-107); CREATININE 1.16 MG/DL (0.40-0.90); GLUCOSE 111 MG/DL (70-104); POTASSIUM 4.3 MMOL/L (3.5-5.1); SODIUM 136 MMOL/L (135-145); TOTAL PROTEIN 5.5 G/DL (6.4-8.2); eGFR 44 ML/MIN
[2017-11-01] MEDS: atorvastatin 10mg tablet PO SCH (20:32)
[2017-11-02] VITALS: BP 113/62
[2017-11-02] MEDS: ampicillin inj 2 GM in normal saline 100ml IV soln 100 ML IV SCH ×4 (01:53→19:26)
[2017-11-02 05:51] LABS: MAGNESIUM 1.8 MG/DL (1.5-2.4); POTASSIUM 3.2 MMOL/L (3.5-5.1)
[2017-11-02 08:00] VITALS: BP 116/67
[2017-11-02] MEDS: pantoprazole 40 MG vial IV SCH (08:00)
[2017-11-02] MEDS: magnesium oxide 400mg tablet PO SCH ×2 (08:00→08:42)
[2017-11-02] MEDS: K and/or MAG REPLACEMENT MC SCH (08:00)
[2017-11-02] MEDS: calcium carbonate/vitamin D3 tablet PO SCH ×2 (08:36→19:26)
[2017-11-02] MEDS: pantoprazole 40mg Tablet.DR PO SCH (08:37)
[2017-11-02] MEDS: levoTHYROXINE 100mcg tablet PO SCH (08:38)
[2017-11-02] MEDS: vitamin D (cholecalciferol) 1,000 unit tablet PO SCH (08:38)
[2017-11-02] MEDS: clindamycin 600mg/D5W 50ml 50 ML IV SCH ×3 (08:39→23:27)
[2017-11-02] MEDS: calcitriol 0.25mcg capsule PO SCH (08:41)
[2017-11-02] MEDS: potassium Cl oral solution 20 MEQ/15 ML PO SCH (08:41)
[2017-11-02] MEDS: apixaban 5mg tablet PO SCH ×2 (08:42→19:26)
[2017-11-02] MEDS: furosemide 40mg tablet PO SCH (08:42)
[2017-11-02] MEDS: cyanocobalamin 500mcg tablet PO SCH (08:43)
[2017-11-02 12:14] VITALS: BP 111/63
[2017-11-02] MEDS: LORazepam 0.5 MG tablet PO PRN (19:25)
[2017-11-02] MEDS: atorvastatin 10mg tablet PO SCH (19:26)
[2017-11-02 20:00] VITALS: BP 114/61
[2017-11-03] VITALS: BP 108/52
[2017-11-03] MEDS: ampicillin inj 2 GM in normal saline 100ml IV soln 100 ML IV SCH ×4 (02:04→20:00)
[2017-11-03 04:31] LABS: BASOPHILS % (AUTO) 0.2 % (0-1); EOSINOPHILS % (AUTO) 1.6 % (0-6); HEMOGLOBIN 7.9 g/dl (12.0-16.0); LYMPHOCYTES # (AUTO) 0.4 X10'3 (1.1-4.8); LYMPHOCYTES % (AUTO) 11.2 % (21-51); MEAN CORPUSCULAR HEMOGLOBIN 30.1 PG (27.0-31.0); MEAN CORPUSCULAR HGB CONC 34.2 % (33.0-36.5); MEAN CORPUSCULAR VOLUME 87.9 FL (78-98); MEAN PLATELET VOLUME 7.4 FL (7.4-10.4); MONOCYTES # (AUTO) 0.2 X10'3 (0-0.9); MONOCYTES % (AUTO) 6.9 % (2-12); NEUTROPHILS # (AUTO) 2.5 X10'3 (1.8-7.7); NEUTROPHILS % (AUTO) 80.1 % (42-75); PLATELET COUNT 158 X10'3 (140-440); RED BLOOD COUNT 2.61 X10'6 (4.20-5.60); RED CELL DISTRIBUTION WIDTH 22.3 % (11.5-14.5); WHITE BLOOD COUNT 3.2 X10'3 (4.5-11.0)
[2017-11-03 04:45] LABS: ALANINE AMINOTRANSFERASE 17 U/L (12-78); ALBUMIN 1.2 G/DL (3.4-5.0); ALBUMIN/GLOBULIN RATIO 0.4 (1.1-1.5); ALKALINE PHOSPHATASE 77 IU/L (46-116); ANION GAP 4 (8-16); ASPARTATE AMINO TRANSFERASE 31 U/L (10-37); BILIRUBIN,TOTAL 0.7 MG/DL (0.1-1.0); BLOOD UREA NITROGEN 13 MG/DL (7-18); CALCIUM 7.1 MG/DL (8.5-10.1); CHLORIDE 103 MMOL/L (99-107); GLUCOSE 89 MG/DL (70-104); MAGNESIUM 1.7 MG/DL (1.5-2.4); POTASSIUM 3.6 MMOL/L (3.5-5.1); SODIUM 137 MMOL/L (135-145); TOTAL CARBON DIOXIDE 29.9 MMOL/L (24-32); TOTAL PROTEIN 4.5 G/DL (6.4-8.2); eGFR 52 ML/MIN
[2017-11-03 07:38] VITALS: BP 119/86
[2017-11-03] MEDS: pantoprazole 40 MG vial IV SCH (07:59)
[2017-11-03] MEDS: K and/or MAG REPLACEMENT MC SCH (08:00)
[2017-11-03] MEDS: magnesium oxide 400mg tablet PO SCH ×2 (08:00→08:05)
[2017-11-03] MEDS: calcitriol 0.25mcg capsule PO SCH (08:04)
[2017-11-03] MEDS: potassium Cl oral solution 20 MEQ/15 ML PO SCH (08:04)
[2017-11-03] MEDS: apixaban 5mg tablet PO SCH ×2 (08:05→20:00)
[2017-11-03] MEDS: vitamin D (cholecalciferol) 1,000 unit tablet PO SCH (08:05)
[2017-11-03] MEDS: calcium carbonate/vitamin D3 tablet PO SCH ×2 (08:05→20:00)
[2017-11-03] MEDS: cyanocobalamin 500mcg tablet PO SCH (08:05)
[2017-11-03] MEDS: furosemide 40mg tablet PO SCH (08:05)
[2017-11-03] MEDS: pantoprazole 40mg Tablet.DR PO SCH (08:05)
[2017-11-03] MEDS: levoTHYROXINE 100mcg tablet PO SCH (08:05)
[2017-11-03] MEDS: clindamycin 600mg/D5W 50ml 50 ML IV SCH ×2 (08:59→16:10)
[2017-11-03 11:00] VITALS: BP 120/65
[2017-11-03] MEDS: LORazepam 0.5 MG tablet PO PRN (12:27)
[2017-11-03 18:00] VITALS: BP 114/63
[2017-11-03] MEDS: atorvastatin 10mg tablet PO SCH (21:00)
[2017-11-04] VITALS: BP 114/63
[2017-11-04] MEDS: clindamycin 600mg/D5W 50ml 50 ML IV SCH ×4 (01:42→23:49)
[2017-11-04] MEDS: ampicillin inj 2 GM in normal saline 100ml IV soln 100 ML IV SCH ×4 (02:30→19:34)
[2017-11-04 06:43] VITALS: BP 132/54
[2017-11-04] MEDS: cyanocobalamin 500mcg tablet PO SCH (08:00)
[2017-11-04] MEDS: magnesium oxide 400mg tablet PO SCH ×2 (08:00→08:24)
[2017-11-04] MEDS: furosemide 40mg tablet PO SCH (08:00)
[2017-11-04] MEDS: potassium Cl oral solution 20 MEQ/15 ML PO SCH (08:00)
[2017-11-04] MEDS: pantoprazole 40 MG vial IV SCH (08:00)
[2017-11-04] MEDS: K and/or MAG REPLACEMENT MC SCH (08:00)
[2017-11-04] MEDS: calcitriol 0.25mcg capsule PO SCH (08:24)
[2017-11-04] MEDS: apixaban 5mg tablet PO SCH ×2 (08:24→19:34)
[2017-11-04] MEDS: LORazepam 0.5 MG tablet PO PRN ×2 (08:24→19:02)
[2017-11-04] MEDS: levoTHYROXINE 100mcg tablet PO SCH (08:24)
[2017-11-04] MEDS: vitamin D (cholecalciferol) 1,000 unit tablet PO SCH (08:24)
[2017-11-04] MEDS: calcium carbonate/vitamin D3 tablet PO SCH ×2 (08:24→19:34)
[2017-11-04] MEDS: pantoprazole 40mg Tablet.DR PO SCH (08:24)
[2017-11-04 11:00] VITALS: BP 112/63
[2017-11-04] MEDS ORDERED: furosemide 40mg/4ml inj IV ONE (12:05)
[2017-11-04 18:00] VITALS: BP 128/66
[2017-11-04] MEDS: furosemide 40mg/4ml inj IV SCH (19:34)
[2017-11-04] MEDS: atorvastatin 10mg tablet PO SCH (19:34)
[2017-11-05] MEDS: LORazepam 0.5 MG tablet PO PRN ×3 (01:26→21:16)
[2017-11-05] MEDS: ampicillin inj 2 GM in normal saline 100ml IV soln 100 ML IV SCH ×4 (01:26→21:18)
[2017-11-05 06:35] LABS: MAGNESIUM 1.8 MG/DL (1.5-2.4)
[2017-11-05 07:00] VITALS: BP 108/64
[2017-11-05] MEDS: K and/or MAG REPLACEMENT MC SCH (08:00)
[2017-11-05] MEDS ORDERED: magnesium 4gm in 100ml NS 100 ML IV PRN (08:25)
[2017-11-05] MEDS ORDERED: magnesium Cl slow-release 64mg tablet PO PRN (08:25)
[2017-11-05] MEDS ORDERED: potassium Cl 20 mEq SR tablet PO PRN ×2 (08:25)
[2017-11-05] MEDS ORDERED: magnesium 2GM in 50ml NS 50 ML IV PRN (08:25)
[2017-11-05] MEDS ORDERED: potassium Cl 40MEQ/NS 500ml 500 ML IV PRN ×2 (08:25)
[2017-11-05] MEDS: apixaban 5mg tablet PO SCH ×2 (08:43→21:17)
[2017-11-05] MEDS: cyanocobalamin 500mcg tablet PO SCH (08:43)
[2017-11-05] MEDS: clindamycin 600mg/D5W 50ml 50 ML IV SCH ×2 (08:43→16:36)
[2017-11-05] MEDS: magnesium oxide 400mg tablet PO SCH ×2 (08:44)
[2017-11-05] MEDS: vitamin D (cholecalciferol) 1,000 unit tablet PO SCH (08:44)
[2017-11-05] MEDS: calcium carbonate/vitamin D3 tablet PO SCH ×2 (08:44→21:16)
[2017-11-05] MEDS: levoTHYROXINE 100mcg tablet PO SCH (08:45)
[2017-11-05] MEDS: pantoprazole 40mg Tablet.DR PO SCH (08:46)
[2017-11-05] MEDS: furosemide 40mg/4ml inj IV SCH ×2 (08:46→21:18)
[2017-11-05] MEDS: potassium Cl oral solution 20 MEQ/15 ML PO SCH (08:47)
[2017-11-05 11:00] VITALS: BP 109/55
[2017-11-05] MEDS: calcitriol 0.25mcg capsule PO SCH (11:01)
[2017-11-05 12:39] LABS: ALANINE AMINOTRANSFERASE 20 U/L (12-78); ALBUMIN 1.4 G/DL (3.4-5.0); ALBUMIN/GLOBULIN RATIO 0.4 (1.1-1.5); ALKALINE PHOSPHATASE 84 IU/L (46-116); ANION GAP 6 (8-16); ASPARTATE AMINO TRANSFERASE 36 U/L (10-37); BILIRUBIN,TOTAL 0.8 MG/DL (0.1-1.0); BLOOD UREA NITROGEN 13 MG/DL (7-18); CHLORIDE 99 MMOL/L (99-107); CREATININE 1.08 MG/DL (0.40-0.90); GLUCOSE 100 MG/DL (70-104); POTASSIUM 3.8 MMOL/L (3.5-5.1); SODIUM 136 MMOL/L (135-145); TOTAL PROTEIN 4.8 G/DL (6.4-8.2); eGFR 48 ML/MIN
[2017-11-05 18:00] VITALS: BP 112/76
[2017-11-05] MEDS: atorvastatin 10mg tablet PO SCH (21:18)
[2017-11-06] VITALS: BP 105/62
[2017-11-06] MEDS: clindamycin 600mg/D5W 50ml 50 ML IV SCH ×4 (00:24→23:29)
[2017-11-06] MEDS: ampicillin inj 2 GM in normal saline 100ml IV soln 100 ML IV SCH ×4 (01:53→20:42)
[2017-11-06 06:15] LABS: MAGNESIUM 1.9 MG/DL (1.5-2.4); POTASSIUM 3.2 MMOL/L (3.5-5.1)
[2017-11-06 07:25] VITALS: BP 102/50
[2017-11-06] MEDS: magnesium oxide 400mg tablet PO SCH ×2 (08:00→09:24)
[2017-11-06] MEDS: K and/or MAG REPLACEMENT MC SCH (08:00)
[2017-11-06] MEDS: levoTHYROXINE 100mcg tablet PO SCH (09:23)
[2017-11-06] MEDS: pantoprazole 40mg Tablet.DR PO SCH (09:23)
[2017-11-06] MEDS: apixaban 5mg tablet PO SCH ×2 (09:24→20:43)
[2017-11-06] MEDS: calcitriol 0.25mcg capsule PO SCH (09:24)
[2017-11-06] MEDS: furosemide 40mg/4ml inj IV SCH ×2 (09:24→20:00)
[2017-11-06] MEDS: vitamin D (cholecalciferol) 1,000 unit tablet PO SCH (09:27)
[2017-11-06] MEDS: cyanocobalamin 500mcg tablet PO SCH (09:28)
[2017-11-06] MEDS: calcium carbonate/vitamin D3 tablet PO SCH ×2 (09:28→20:43)
[2017-11-06] MEDS: potassium Cl oral solution 20 MEQ/15 ML PO SCH (09:29)
[2017-11-06] MEDS ORDERED: potassium Cl oral solution 20 MEQ/15 ML PO PRN (11:34)
[2017-11-06] MEDS: lisinopril 2.5mg tablet PO SCH (11:38)
[2017-11-06] MEDS: potassium Cl oral solution 20 MEQ/15 ML PO PRN ×2 (11:48→16:15)
[2017-11-06 11:57] VITALS: BP 113/68
[2017-11-06 16:32] LABS: BASOPHILS % (AUTO) 0.5 % (0-1); EOSINOPHILS % (AUTO) 1.3 % (0-6); HEMATOCRIT 26.8 % (35.0-45.0); HEMOGLOBIN 9.1 g/dl (12.0-16.0); LYMPHOCYTES # (AUTO) 0.4 X10'3 (1.1-4.8); LYMPHOCYTES % (AUTO) 10.5 % (21-51); MEAN CORPUSCULAR HEMOGLOBIN 30.1 PG (27.0-31.0); MEAN CORPUSCULAR VOLUME 88.4 FL (78-98); MEAN PLATELET VOLUME 7.9 FL (7.4-10.4); MONOCYTES # (AUTO) 0.2 X10'3 (0-0.9); MONOCYTES % (AUTO) 5.9 % (2-12); NEUTROPHILS # (AUTO) 2.7 X10'3 (1.8-7.7); NEUTROPHILS % (AUTO) 81.8 % (42-75); PLATELET COUNT 163 X10'3 (140-440); RED BLOOD COUNT 3.03 X10'6 (4.20-5.60); RED CELL DISTRIBUTION WIDTH 22.6 % (11.5-14.5); WHITE BLOOD COUNT 3.3 X10'3 (4.5-11.0)
[2017-11-06 16:46] LABS: ALANINE AMINOTRANSFERASE 21 U/L (12-78); ALBUMIN 1.6 G/DL (3.4-5.0); ALBUMIN/GLOBULIN RATIO 0.5 (1.1-1.5); ALKALINE PHOSPHATASE 89 IU/L (46-116); ANION GAP 5 (8-16); ASPARTATE AMINO TRANSFERASE 36 U/L (10-37); BILIRUBIN,TOTAL 0.9 MG/DL (0.1-1.0); BLOOD UREA NITROGEN 14 MG/DL (7-18); BUN/CREATININE RATIO 11.9 (6.6-38.0); CALCIUM 7.2 MG/DL (8.5-10.1); CHLORIDE 101 MMOL/L (99-107); CREATININE 1.18 MG/DL (0.40-0.90); GLUCOSE 134 MG/DL (70-104); POTASSIUM 3.6 MMOL/L (3.5-5.1); SODIUM 138 MMOL/L (135-145); TOTAL CARBON DIOXIDE 32.4 MMOL/L (24-32); TOTAL PROTEIN 5.1 G/DL (6.4-8.2); eGFR 43 ML/MIN
[2017-11-06 18:00] VITALS: BP_SYST 104; BP_SYST 113; BP_SYST 94; BP_DIAS 54; BP_DIAS 60; BP_DIAS 62
[2017-11-06] MEDS: atorvastatin 10mg tablet PO SCH (20:43)
[2017-11-06] MEDS: LORazepam 0.5 MG tablet PO PRN (23:56)
[2017-11-07] VITALS: BP 103/51
[2017-11-07] MEDS: ampicillin inj 2 GM in normal saline 100ml IV soln 100 ML IV SCH ×2 (02:17→07:30)
[2017-11-07 05:47] LABS: BASOPHILS % (AUTO) 0.4 % (0-1); EOSINOPHILS % (AUTO) 1.3 % (0-6); HEMATOCRIT 22.3 % (35.0-45.0); HEMOGLOBIN 7.7 g/dl (12.0-16.0); LYMPHOCYTES # (AUTO) 0.4 X10'3 (1.1-4.8); LYMPHOCYTES % (AUTO) 13.2 % (21-51); MEAN CORPUSCULAR HEMOGLOBIN 30.3 PG (27.0-31.0); MEAN CORPUSCULAR HGB CONC 34.5 % (33.0-36.5); MEAN CORPUSCULAR VOLUME 88.1 FL (78-98); MEAN PLATELET VOLUME 8.1 FL (7.4-10.4); MONOCYTES # (AUTO) 0.2 X10'3 (0-0.9); MONOCYTES % (AUTO) 8.2 % (2-12); NEUTROPHILS # (AUTO) 2.2 X10'3 (1.8-7.7); NEUTROPHILS % (AUTO) 76.9 % (42-75); PLATELET COUNT 145 X10'3 (140-440); RED BLOOD COUNT 2.53 X10'6 (4.20-5.60); RED CELL DISTRIBUTION WIDTH 22.6 % (11.5-14.5); WHITE BLOOD COUNT 2.9 X10'3 (4.5-11.0)
[2017-11-07 06:11] LABS: ALANINE AMINOTRANSFERASE 16 U/L (12-78); ALBUMIN 1.3 G/DL (3.4-5.0); ALBUMIN/GLOBULIN RATIO 0.4 (1.1-1.5); ALKALINE PHOSPHATASE 76 IU/L (46-116); ANION GAP 5 (8-16); ASPARTATE AMINO TRANSFERASE 32 U/L (10-37); BILIRUBIN,TOTAL 0.7 MG/DL (0.1-1.0); BLOOD UREA NITROGEN 13 MG/DL (7-18); BUN/CREATININE RATIO 13.1 (6.6-38.0); CALCIUM 6.9 MG/DL (8.5-10.1); CHLORIDE 103 MMOL/L (99-107); CREATININE 0.99 MG/DL (0.40-0.90); GLUCOSE 91 MG/DL (70-104); POTASSIUM 3.5 MMOL/L (3.5-5.1); SODIUM 140 MMOL/L (135-145); TOTAL CARBON DIOXIDE 31.9 MMOL/L (24-32); TOTAL PROTEIN 4.5 G/DL (6.4-8.2); eGFR 53 ML/MIN
[2017-11-07 07:00] VITALS: BP 106/59
[2017-11-07] MEDS: levoTHYROXINE 100mcg tablet PO SCH (07:29)
[2017-11-07] MEDS: furosemide 40mg/4ml inj IV SCH ×2 (07:30→20:00)
[2017-11-07] MEDS: calcitriol 0.25mcg capsule PO SCH (07:31)
[2017-11-07] MEDS: apixaban 5mg tablet PO SCH ×2 (07:37→20:05)
[2017-11-07] MEDS: magnesium oxide 400mg tablet PO SCH ×2 (07:38)
[2017-11-07] MEDS: calcium carbonate/vitamin D3 tablet PO SCH ×2 (07:38→20:05)
[2017-11-07] MEDS: potassium Cl oral solution 20 MEQ/15 ML PO SCH (07:42)
[2017-11-07] MEDS: cyanocobalamin 500mcg tablet PO SCH (07:44)
[2017-11-07] MEDS: vitamin D (cholecalciferol) 1,000 unit tablet PO SCH (07:44)
[2017-11-07] MEDS: pantoprazole 40mg Tablet.DR PO SCH (07:47)
[2017-11-07] MEDS: K and/or MAG REPLACEMENT MC SCH (08:00)
[2017-11-07 08:01] LABS: BASOPHILS % (MANUAL) 2 % (0-1); LYMPHOCYTES % (MANUAL) 10 % (21-51); MONOCYTES % (MANUAL) 8 % (2-12); NEUTROPHILS % (MANUAL) 80 % (42-75); PLATELET ESTIMATE NORMAL; SMUDGE CELLS 2+; TOTAL CELLS COUNTED 100
[2017-11-07 08:02] LABS: ANISOCYTOSIS 3+; ELLIPTOCYTES FEW
[2017-11-07] MEDS: clindamycin 600mg/D5W 50ml 50 ML IV SCH ×3 (09:35→23:44)
[2017-11-07] MEDS: lisinopril 2.5mg tablet PO SCH (11:16)
[2017-11-07 11:55] VITALS: BP 113/97
[2017-11-07] MEDS: WATER IV SCH ×2 (14:35→20:05)
[2017-11-07] MEDS: DEXTROSE 5% IV SCH ×2 (14:35→20:05)
[2017-11-07] MEDS: AMPICILLIN IV SCH ×2 (14:35→20:05)
[2017-11-07 18:00] VITALS: BP 92/45
[2017-11-07] MEDS: atorvastatin 10mg tablet PO SCH (20:06)
[2017-11-07] MEDS: lactobacillus rhamnosus 10,000 MMU CELLS/CAPSULE PO SCH (20:06)
[2017-11-07] MEDS: LORazepam 0.5 MG tablet PO PRN (20:11)
[2017-11-07 21:12] VITALS: BP 92/45
[2017-11-08] VITALS: BP 104/51
[2017-11-08] MEDS: LORazepam 0.5 MG tablet PO PRN (01:44)
[2017-11-08] MEDS: DEXTROSE 5% IV SCH ×4 (01:45→20:57)
[2017-11-08] MEDS: WATER IV SCH ×4 (01:45→20:57)
[2017-11-08] MEDS: AMPICILLIN IV SCH ×4 (01:45→20:57)
[2017-11-08 05:36] LABS: BASOPHILS % (AUTO) 0.5 % (0-1); EOSINOPHILS # (AUTO) 0.1 X10'3 (0-0.9); EOSINOPHILS % (AUTO) 2.1 % (0-6); HEMATOCRIT 23.9 % (35.0-45.0); LYMPHOCYTES # (AUTO) 0.3 X10'3 (1.1-4.8); MEAN CORPUSCULAR HEMOGLOBIN 29.6 PG (27.0-31.0); MEAN CORPUSCULAR HGB CONC 33.4 % (33.0-36.5); MEAN CORPUSCULAR VOLUME 88.6 FL (78-98); MONOCYTES # (AUTO) 0.2 X10'3 (0-0.9); MONOCYTES % (AUTO) 5.5 % (2-12); NEUTROPHILS # (AUTO) 3.7 X10'3 (1.8-7.7); NEUTROPHILS % (AUTO) 84.9 % (42-75); PLATELET COUNT 152 X10'3 (140-440); RED CELL DISTRIBUTION WIDTH 22.1 % (11.5-14.5); WHITE BLOOD COUNT 4.3 X10'3 (4.5-11.0)
[2017-11-08 06:09] LABS: ALANINE AMINOTRANSFERASE 18 U/L (12-78); ALBUMIN 1.4 G/DL (3.4-5.0); ALBUMIN/GLOBULIN RATIO 0.4 (1.1-1.5); ALKALINE PHOSPHATASE 78 IU/L (46-116); ANION GAP 4 (8-16); ASPARTATE AMINO TRANSFERASE 33 U/L (10-37); BILIRUBIN,TOTAL 0.7 MG/DL (0.1-1.0); BLOOD UREA NITROGEN 13 MG/DL (7-18); BUN/CREATININE RATIO 13.3 (6.6-38.0); CALCIUM 7.1 MG/DL (8.5-10.1); CHLORIDE 103 MMOL/L (99-107); CREATININE 0.98 MG/DL (0.40-0.90); GLUCOSE 92 MG/DL (70-104); POTASSIUM 3.3 MMOL/L (3.5-5.1); SODIUM 139 MMOL/L (135-145); TOTAL CARBON DIOXIDE 31.8 MMOL/L (24-32); TOTAL PROTEIN 4.7 G/DL (6.4-8.2); eGFR 53 ML/MIN
[2017-11-08 07:52] VITALS: BP 116/62
[2017-11-08] MEDS: magnesium oxide 400mg tablet PO SCH ×2 (08:00→08:43)
[2017-11-08] MEDS: K and/or MAG REPLACEMENT MC SCH (08:00)
[2017-11-08] MEDS: levoTHYROXINE 100mcg tablet PO SCH (08:42)
[2017-11-08] MEDS: pantoprazole 40mg Tablet.DR PO SCH (08:42)
[2017-11-08] MEDS: clindamycin 600mg/D5W 50ml 50 ML IV SCH ×2 (08:42→17:00)
[2017-11-08] MEDS: lactobacillus rhamnosus 10,000 MMU CELLS/CAPSULE PO SCH ×2 (08:43→20:57)
[2017-11-08] MEDS: vitamin D (cholecalciferol) 1,000 unit tablet PO SCH (08:43)
[2017-11-08] MEDS: apixaban 5mg tablet PO SCH ×2 (08:43→20:57)
[2017-11-08] MEDS: furosemide 40mg/4ml inj IV SCH ×2 (08:43→20:57)
[2017-11-08] MEDS: potassium Cl oral solution 20 MEQ/15 ML PO SCH (08:43)
[2017-11-08] MEDS: cyanocobalamin 500mcg tablet PO SCH (08:44)
[2017-11-08] MEDS: calcitriol 0.25mcg capsule PO SCH (08:44)
[2017-11-08] MEDS: lisinopril 2.5mg tablet PO SCH (08:44)
[2017-11-08] MEDS: calcium carbonate/vitamin D3 tablet PO SCH ×2 (08:44→20:58)
[2017-11-08 19:00] VITALS: BP 100/52
[2017-11-08] MEDS: atorvastatin 10mg tablet PO SCH (20:57)
[2017-11-09 00:16] VITALS: BP 101/54
[2017-11-09] MEDS: clindamycin 600mg/D5W 50ml 50 ML IV SCH ×4 (01:42→23:25)
[2017-11-09] MEDS: AMPICILLIN IV SCH ×4 (02:19→19:28)
[2017-11-09] MEDS: WATER IV SCH ×4 (02:19→19:28)
[2017-11-09] MEDS: benzonatate 100mg capsule PO PRN ×2 (02:19→20:04)
[2017-11-09] MEDS: DEXTROSE 5% IV SCH ×4 (02:19→19:28)
[2017-11-09] MEDS: acetaminophen 325mg tablet PO PRN (02:28)
[2017-11-09] MEDS: LORazepam 0.5 MG tablet PO PRN (05:10)
[2017-11-09 06:08] LABS: BASOPHILS % (AUTO) 0.5 % (0-1); EOSINOPHILS % (AUTO) 1.3 % (0-6); HEMATOCRIT 22.7 % (35.0-45.0); HEMOGLOBIN 7.7 g/dl (12.0-16.0); LYMPHOCYTES # (AUTO) 0.3 X10'3 (1.1-4.8); LYMPHOCYTES % (AUTO) 11.2 % (21-51); MEAN CORPUSCULAR HEMOGLOBIN 29.9 PG (27.0-31.0); MEAN CORPUSCULAR HGB CONC 33.7 % (33.0-36.5); MEAN CORPUSCULAR VOLUME 88.9 FL (78-98); MEAN PLATELET VOLUME 8.2 FL (7.4-10.4); MONOCYTES # (AUTO) 0.2 X10'3 (0-0.9); MONOCYTES % (AUTO) 6.7 % (2-12); NEUTROPHILS # (AUTO) 2.2 X10'3 (1.8-7.7); NEUTROPHILS % (AUTO) 80.3 % (42-75); PLATELET COUNT 124 X10'3 (140-440); RED BLOOD COUNT 2.56 X10'6 (4.20-5.60); WHITE BLOOD COUNT 2.7 X10'3 (4.5-11.0)
[2017-11-09 06:34] LABS: ALANINE AMINOTRANSFERASE 10 U/L (12-78); ALBUMIN 1.3 G/DL (3.4-5.0); ALBUMIN/GLOBULIN RATIO 0.4 (1.1-1.5); ALKALINE PHOSPHATASE 73 IU/L (46-116); ANION GAP 7 (8-16); ASPARTATE AMINO TRANSFERASE 25 U/L (10-37); BILIRUBIN,TOTAL 0.7 MG/DL (0.1-1.0); BLOOD UREA NITROGEN 13 MG/DL (7-18); BUN/CREATININE RATIO 12.4 (6.6-38.0); CALCIUM 7.1 MG/DL (8.5-10.1); CHLORIDE 101 MMOL/L (99-107); CREATININE 1.05 MG/DL (0.40-0.90); GLUCOSE 87 MG/DL (70-104); POTASSIUM 3.1 MMOL/L (3.5-5.1); SODIUM 139 MMOL/L (135-145); TOTAL CARBON DIOXIDE 31.1 MMOL/L (24-32); TOTAL PROTEIN 4.4 G/DL (6.4-8.2); eGFR 49 ML/MIN
[2017-11-09 07:15] VITALS: BP 101/63
[2017-11-09 07:45] LABS: LYMPHOCYTES % (MANUAL) 17 % (21-51); MONOCYTES % (MANUAL) 6 % (2-12); NEUTROPHILS % (MANUAL) 77 % (42-75); PLATELET ESTIMATE DECREASED; TOTAL CELLS COUNTED 100
[2017-11-09 07:46] LABS: ANISOCYTOSIS 3+; ELLIPTOCYTES FEW
[2017-11-09] MEDS: K and/or MAG REPLACEMENT MC SCH (08:00)
[2017-11-09] MEDS: magnesium oxide 400mg tablet PO SCH ×2 (08:00→08:19)
[2017-11-09] MEDS: calcium carbonate/vitamin D3 tablet PO SCH ×2 (08:18→19:29)
[2017-11-09] MEDS: apixaban 5mg tablet PO SCH ×2 (08:18→19:29)
[2017-11-09] MEDS: lactobacillus rhamnosus 10,000 MMU CELLS/CAPSULE PO SCH ×2 (08:18→19:29)
[2017-11-09] MEDS: pantoprazole 40mg Tablet.DR PO SCH (08:19)
[2017-11-09] MEDS: lisinopril 2.5mg tablet PO SCH (08:19)
[2017-11-09] MEDS: vitamin D (cholecalciferol) 1,000 unit tablet PO SCH (08:19)
[2017-11-09] MEDS: levoTHYROXINE 100mcg tablet PO SCH (08:19)
[2017-11-09] MEDS: cyanocobalamin 500mcg tablet PO SCH (08:20)
[2017-11-09] MEDS: potassium Cl oral solution 20 MEQ/15 ML PO SCH (08:20)
[2017-11-09] MEDS: calcitriol 0.25mcg capsule PO SCH (08:20)
[2017-11-09] MEDS: furosemide 40mg/4ml inj IV SCH ×2 (09:45→19:46)
[2017-11-09] MEDS ORDERED: magnesium 4gm in 100ml NS 100 ML IV PRN (11:30)
[2017-11-09] MEDS ORDERED: magnesium Cl slow-release 64mg tablet PO PRN (11:30)
[2017-11-09] MEDS ORDERED: magnesium 2GM in 50ml NS 50 ML IV PRN (11:30)
[2017-11-09] MEDS ORDERED: potassium Cl 20 mEq SR tablet PO PRN ×2 (11:30)
[2017-11-09] MEDS ORDERED: potassium Cl 40MEQ/NS 500ml 500 ML IV PRN ×2 (11:30)
[2017-11-09 11:41] VITALS: BP 94/52
[2017-11-09] MEDS ORDERED: potassium Cl oral solution 20 MEQ/15 ML PO PRN (11:52)
[2017-11-09] MEDS: potassium Cl oral solution 20 MEQ/15 ML PO PRN ×3 (12:11→23:25)
[2017-11-09 20:00] VITALS: BP 98/41
[2017-11-09] MEDS: atorvastatin 10mg tablet PO SCH (20:04)
[2017-11-10] VITALS: BP 113/42
[2017-11-10] MEDS: WATER IV SCH ×4 (01:23→19:20)
[2017-11-10] MEDS: DEXTROSE 5% IV SCH ×4 (01:23→19:20)
[2017-11-10] MEDS: AMPICILLIN IV SCH ×4 (01:23→19:20)
[2017-11-10 04:46] LABS: BASOPHILS % (AUTO) 0.3 % (0-1); EOSINOPHILS % (AUTO) 2.3 % (0-6); HEMATOCRIT 23.6 % (35.0-45.0); HEMOGLOBIN 7.9 g/dl (12.0-16.0); LYMPHOCYTES # (AUTO) 0.3 X10'3 (1.1-4.8); MEAN CORPUSCULAR HGB CONC 33.5 % (33.0-36.5); MEAN CORPUSCULAR VOLUME 89.4 FL (78-98); MEAN PLATELET VOLUME 7.9 FL (7.4-10.4); MONOCYTES # (AUTO) 0.2 X10'3 (0-0.9); MONOCYTES % (AUTO) 7.4 % (2-12); NEUTROPHILS # (AUTO) 1.7 X10'3 (1.8-7.7); PLATELET COUNT 131 X10'3 (140-440); RED BLOOD COUNT 2.63 X10'6 (4.20-5.60); RED CELL DISTRIBUTION WIDTH 21.8 % (11.5-14.5); WHITE BLOOD COUNT 2.2 X10'3 (4.5-11.0)
[2017-11-10 04:59] LABS: ALANINE AMINOTRANSFERASE 16 U/L (12-78); ALBUMIN 1.3 G/DL (3.4-5.0); ALBUMIN/GLOBULIN RATIO 0.4 (1.1-1.5); ALKALINE PHOSPHATASE 74 IU/L (46-116); ANION GAP 4 (8-16); ASPARTATE AMINO TRANSFERASE 32 U/L (10-37); BILIRUBIN,TOTAL 0.6 MG/DL (0.1-1.0); BLOOD UREA NITROGEN 14 MG/DL (7-18); BUN/CREATININE RATIO 13.2 (6.6-38.0); CALCIUM 7.2 MG/DL (8.5-10.1); CHLORIDE 103 MMOL/L (99-107); CREATININE 1.06 MG/DL (0.40-0.90); GLUCOSE 82 MG/DL (70-104); POTASSIUM 3.9 MMOL/L (3.5-5.1); SODIUM 139 MMOL/L (135-145); TOTAL CARBON DIOXIDE 32.2 MMOL/L (24-32); TOTAL PROTEIN 4.5 G/DL (6.4-8.2); eGFR 49 ML/MIN
[2017-11-10 06:09] LABS: ANISOCYTOSIS 3+; PLATELET ESTIMATE NORMAL; TOTAL CELLS COUNTED 100
[2017-11-10 06:10] LABS: ELLIPTOCYTES FEW; POIKILOCYTOSIS FEW
[2017-11-10] MEDS: K and/or MAG REPLACEMENT MC SCH (07:58)
[2017-11-10 08:00] VITALS: BP 92/48
[2017-11-10] MEDS: lisinopril 2.5mg tablet PO SCH ×2 (08:00→11:05)
[2017-11-10] MEDS: levoTHYROXINE 100mcg tablet PO SCH (08:20)
[2017-11-10] MEDS: lactobacillus rhamnosus 10,000 MMU CELLS/CAPSULE PO SCH ×2 (08:20→19:20)
[2017-11-10] MEDS: cyanocobalamin 500mcg tablet PO SCH (08:21)
[2017-11-10] MEDS: calcium carbonate/vitamin D3 tablet PO SCH ×2 (08:21→19:20)
[2017-11-10] MEDS: apixaban 5mg tablet PO SCH ×2 (08:22→19:20)
[2017-11-10] MEDS: pantoprazole 40mg Tablet.DR PO SCH (08:22)
[2017-11-10] MEDS: vitamin D (cholecalciferol) 1,000 unit tablet PO SCH (08:22)
[2017-11-10] MEDS: potassium Cl oral solution 20 MEQ/15 ML PO SCH (08:23)
[2017-11-10] MEDS: clindamycin 600mg/D5W 50ml 50 ML IV SCH ×3 (08:24→23:31)
[2017-11-10] MEDS: calcitriol 0.25mcg capsule PO SCH (08:25)
[2017-11-10] MEDS: furosemide 40mg/4ml inj IV SCH ×2 (10:00→19:20)
[2017-11-10] MEDS ORDERED: metolazone 2.5mg tablet PO SCH (11:00)
[2017-11-10 12:00] VITALS: BP 118/43
[2017-11-10] MEDS: benzonatate 100mg capsule PO PRN (18:29)
[2017-11-10] MEDS: acetaminophen 325mg tablet PO PRN (18:30)
[2017-11-10] MEDS: LORazepam 0.5 MG tablet PO PRN (18:30)
[2017-11-10 20:00] VITALS: BP 115/63
[2017-11-10] MEDS: atorvastatin 10mg tablet PO SCH (20:19)
[2017-11-10 23:42] VITALS: BP 99/57
[2017-11-11] MEDS: WATER IV SCH ×4 (02:12→19:23)
[2017-11-11] MEDS: DEXTROSE 5% IV SCH ×4 (02:12→19:23)
[2017-11-11] MEDS: AMPICILLIN IV SCH ×4 (02:12→19:23)
[2017-11-11 03:22] LABS: ALBUMIN 1.4 G/DL (3.4-5.0); ANION GAP 4 (8-16); BLOOD UREA NITROGEN 13 MG/DL (7-18); BUN/CREATININE RATIO 11.5 (6.6-38.0); CALCIUM 7.3 MG/DL (8.5-10.1); CHLORIDE 97 MMOL/L (99-107); CREATININE 1.13 MG/DL (0.40-0.90); GLUCOSE 99 MG/DL (70-104); MAGNESIUM 1.9 MG/DL (1.5-2.4); POTASSIUM 3.8 MMOL/L (3.5-5.1); SODIUM 135 MMOL/L (135-145); TOTAL CARBON DIOXIDE 33.7 MMOL/L (24-32); eGFR 45 ML/MIN
[2017-11-11 03:28] LABS: BASOPHILS % (AUTO) 0.8 % (0-1); EOSINOPHILS % (AUTO) 1.8 % (0-6); HEMATOCRIT 25.2 % (35.0-45.0); HEMOGLOBIN 8.4 g/dl (12.0-16.0); LYMPHOCYTES # (AUTO) 0.5 X10'3 (1.1-4.8); LYMPHOCYTES % (AUTO) 19.3 % (21-51); MEAN CORPUSCULAR HGB CONC 33.5 % (33.0-36.5); MEAN CORPUSCULAR VOLUME 89.5 FL (78-98); MEAN PLATELET VOLUME 8.3 FL (7.4-10.4); MONOCYTES # (AUTO) 0.2 X10'3 (0-0.9); MONOCYTES % (AUTO) 6.8 % (2-12); NEUTROPHILS # (AUTO) 1.8 X10'3 (1.8-7.7); NEUTROPHILS % (AUTO) 71.3 % (42-75); PLATELET COUNT 131 X10'3 (140-440); RED BLOOD COUNT 2.81 X10'6 (4.20-5.60); RED CELL DISTRIBUTION WIDTH 21.8 % (11.5-14.5); WHITE BLOOD COUNT 2.5 X10'3 (4.5-11.0)
[2017-11-11 07:00] VITALS: BP 118/43
[2017-11-11 07:03] LABS: ANISOCYTOSIS 3+; ELLIPTOCYTES FEW; PLATELET ESTIMATE DECREASED; POIKILOCYTOSIS FEW; TOTAL CELLS COUNTED 100
[2017-11-11] MEDS: K and/or MAG REPLACEMENT MC SCH (08:00)
[2017-11-11] MEDS: benzonatate 100mg capsule PO PRN (08:14)
[2017-11-11] MEDS: LORazepam 0.5 MG tablet PO PRN ×2 (08:14→18:54)
[2017-11-11] MEDS: acetaminophen 325mg tablet PO PRN ×3 (08:15→18:54)
[2017-11-11] MEDS: calcium carbonate/vitamin D3 tablet PO SCH ×2 (08:15→19:23)
[2017-11-11] MEDS: levoTHYROXINE 100mcg tablet PO SCH (08:16)
[2017-11-11] MEDS: lisinopril 2.5mg tablet PO SCH ×2 (08:16→11:05)
[2017-11-11] MEDS: calcitriol 0.25mcg capsule PO SCH (08:16)
[2017-11-11] MEDS: pantoprazole 40mg Tablet.DR PO SCH (08:17)
[2017-11-11] MEDS: vitamin D (cholecalciferol) 1,000 unit tablet PO SCH (08:17)
[2017-11-11] MEDS: furosemide 40mg/4ml inj IV SCH ×3 (08:17→20:00)
[2017-11-11] MEDS: clindamycin 600mg/D5W 50ml 50 ML IV SCH ×3 (08:20→23:41)
[2017-11-11] MEDS: apixaban 5mg tablet PO SCH ×2 (08:23→19:23)
[2017-11-11] MEDS: cyanocobalamin 500mcg tablet PO SCH (08:23)
[2017-11-11] MEDS: lactobacillus rhamnosus 10,000 MMU CELLS/CAPSULE PO SCH ×2 (08:23→19:23)
[2017-11-11] MEDS: potassium Cl oral solution 20 MEQ/15 ML PO SCH (08:25)
[2017-11-11] MEDS ORDERED: metolazone 2.5mg tablet PO ONE (09:05)
[2017-11-11 12:00] VITALS: BP 118/43
[2017-11-11 19:30] VITALS: BP 99/56
[2017-11-11] MEDS: atorvastatin 10mg tablet PO SCH (20:00)
[2017-11-11 23:30] VITALS: BP 95/57
[2017-11-12] MEDS: WATER IV SCH ×4 (01:37→19:32)
[2017-11-12] MEDS: AMPICILLIN IV SCH ×4 (01:37→19:32)
[2017-11-12] MEDS: DEXTROSE 5% IV SCH ×4 (01:37→19:32)
[2017-11-12 03:16] LABS: BASOPHILS % (AUTO) 0.5 % (0-1); EOSINOPHILS # (AUTO) 0.1 X10'3 (0-0.9); EOSINOPHILS % (AUTO) 3.8 % (0-6); HEMATOCRIT 23.6 % (35.0-45.0); LYMPHOCYTES # (AUTO) 0.3 X10'3 (1.1-4.8); LYMPHOCYTES % (AUTO) 15.6 % (21-51); MEAN CORPUSCULAR HEMOGLOBIN 30.1 PG (27.0-31.0); MEAN CORPUSCULAR HGB CONC 33.8 % (33.0-36.5); MEAN CORPUSCULAR VOLUME 88.9 FL (78-98); MEAN PLATELET VOLUME 8.2 FL (7.4-10.4); MONOCYTES # (AUTO) 0.1 X10'3 (0-0.9); MONOCYTES % (AUTO) 5.4 % (2-12); NEUTROPHILS # (AUTO) 1.5 X10'3 (1.8-7.7); NEUTROPHILS % (AUTO) 74.7 % (42-75); PLATELET COUNT 113 X10'3 (140-440); RED BLOOD COUNT 2.65 X10'6 (4.20-5.60); RED CELL DISTRIBUTION WIDTH 21.9 % (11.5-14.5)
[2017-11-12 03:25] LABS: ALBUMIN 1.3 G/DL (3.4-5.0); ANION GAP 3 (8-16); BLOOD UREA NITROGEN 15 MG/DL (7-18); BUN/CREATININE RATIO 13.3 (6.6-38.0); CALCIUM 7.4 MG/DL (8.5-10.1); CHLORIDE 97 MMOL/L (99-107); CREATININE 1.13 MG/DL (0.40-0.90); GLUCOSE 89 MG/DL (70-104); MAGNESIUM 1.7 MG/DL (1.5-2.4); SODIUM 135 MMOL/L (135-145); TOTAL CARBON DIOXIDE 35.1 MMOL/L (24-32); eGFR 45 ML/MIN
[2017-11-12 03:27] LABS: POTASSIUM 2.8 MMOL/L (3.5-5.1)
[2017-11-12] MEDS ORDERED: potassium Cl 20 mEq SR tablet PO PRN ×2 (03:40)
[2017-11-12] MEDS ORDERED: potassium Cl 40MEQ/NS 500ml 500 ML IV PRN ×2 (03:40)
[2017-11-12] MEDS: LORazepam 0.5 MG tablet PO PRN ×2 (05:09→13:40)
[2017-11-12] MEDS: diphenhydrAMINE 25mg capsule PO PRN (05:53)
[2017-11-12 06:21] LABS: ANISOCYTOSIS 3+; PLATELET ESTIMATE DECREASED; TOTAL CELLS COUNTED 100
[2017-11-12 06:22] LABS: POIKILOCYTOSIS FEW; POLYCHROMASIA FEW
[2017-11-12 07:04] VITALS: BP 105/64
[2017-11-12] MEDS: K and/or MAG REPLACEMENT MC SCH ×2 (08:00)
[2017-11-12] MEDS: cyanocobalamin 500mcg tablet PO SCH (08:49)
[2017-11-12] MEDS: calcium carbonate/vitamin D3 tablet PO SCH ×2 (08:50→19:30)
[2017-11-12] MEDS: calcitriol 0.25mcg capsule PO SCH (08:50)
[2017-11-12] MEDS: lisinopril 2.5mg tablet PO SCH ×2 (08:51→11:05)
[2017-11-12] MEDS: lactobacillus rhamnosus 10,000 MMU CELLS/CAPSULE PO SCH ×2 (08:51→19:30)
[2017-11-12] MEDS: vitamin D (cholecalciferol) 1,000 unit tablet PO SCH (08:52)
[2017-11-12] MEDS: apixaban 5mg tablet PO SCH ×2 (08:52→19:30)
[2017-11-12] MEDS: potassium Cl oral solution 20 MEQ/15 ML PO SCH (08:53)
[2017-11-12] MEDS: furosemide 40mg/4ml inj IV SCH ×2 (08:53→19:32)
[2017-11-12] MEDS: levoTHYROXINE 100mcg tablet PO SCH (08:54)
[2017-11-12] MEDS: pantoprazole 40mg Tablet.DR PO SCH (08:55)
[2017-11-12] MEDS: clindamycin 600mg/D5W 50ml 50 ML IV SCH ×3 (09:04→23:27)
[2017-11-12 11:00] VITALS: BP 94/56
[2017-11-12 11:30] VITALS: BP 91/63
[2017-11-12] MEDS: acetaminophen 325mg tablet PO PRN ×2 (13:41→19:31)
[2017-11-12 19:00] VITALS: BP 90/56
[2017-11-12] MEDS: atorvastatin 10mg tablet PO SCH (21:21)
[2017-11-13] MEDS: diphenhydrAMINE 25mg capsule PO PRN (00:13)
[2017-11-13] MEDS: WATER IV SCH ×4 (01:33→20:02)
[2017-11-13] MEDS: AMPICILLIN IV SCH ×4 (01:33→20:02)
[2017-11-13] MEDS: DEXTROSE 5% IV SCH ×4 (01:33→20:02)
[2017-11-13] MEDS ORDERED: diphenhydrAMINE 25mg capsule PO ONE (02:10)
[2017-11-13 03:51] LABS: BASOPHILS % (AUTO) 0.2 % (0-1); EOSINOPHILS # (AUTO) 0.1 X10'3 (0-0.9); EOSINOPHILS % (AUTO) 4.5 % (0-6); HEMATOCRIT 24.4 % (35.0-45.0); HEMOGLOBIN 8.1 g/dl (12.0-16.0); LYMPHOCYTES # (AUTO) 0.3 X10'3 (1.1-4.8); LYMPHOCYTES % (AUTO) 13.9 % (21-51); MEAN CORPUSCULAR HEMOGLOBIN 29.7 PG (27.0-31.0); MEAN CORPUSCULAR HGB CONC 33.2 % (33.0-36.5); MEAN CORPUSCULAR VOLUME 89.4 FL (78-98); MEAN PLATELET VOLUME 8.2 FL (7.4-10.4); MONOCYTES # (AUTO) 0.1 X10'3 (0-0.9); MONOCYTES % (AUTO) 5.7 % (2-12); NEUTROPHILS # (AUTO) 1.7 X10'3 (1.8-7.7); NEUTROPHILS % (AUTO) 75.7 % (42-75); PLATELET COUNT 111 X10'3 (140-440); RED BLOOD COUNT 2.73 X10'6 (4.20-5.60); RED CELL DISTRIBUTION WIDTH 21.3 % (11.5-14.5); WHITE BLOOD COUNT 2.3 X10'3 (4.5-11.0)
[2017-11-13 04:01] LABS: ALBUMIN 1.4 G/DL (3.4-5.0); ANION GAP 2 (8-16); BLOOD UREA NITROGEN 15 MG/DL (7-18); CALCIUM 7.6 MG/DL (8.5-10.1); CHLORIDE 97 MMOL/L (99-107); CREATININE 1.15 MG/DL (0.40-0.90); GLUCOSE 87 MG/DL (70-104); MAGNESIUM 1.7 MG/DL (1.5-2.4); POTASSIUM 3.7 MMOL/L (3.5-5.1); SODIUM 135 MMOL/L (135-145); TOTAL CARBON DIOXIDE 35.9 MMOL/L (24-32); eGFR 44 ML/MIN
[2017-11-13] MEDS: LORazepam 0.5 MG tablet PO PRN (04:25)
[2017-11-13 07:00] VITALS: BP 91/60
[2017-11-13] MEDS: lactobacillus rhamnosus 10,000 MMU CELLS/CAPSULE PO SCH ×2 (07:42→20:01)
[2017-11-13] MEDS: clindamycin 600mg/D5W 50ml 50 ML IV SCH ×2 (07:42→17:18)
[2017-11-13] MEDS: calcitriol 0.25mcg capsule PO SCH (07:42)
[2017-11-13] MEDS: apixaban 5mg tablet PO SCH ×2 (07:42→20:01)
[2017-11-13] MEDS: pantoprazole 40mg Tablet.DR PO SCH (07:43)
[2017-11-13] MEDS: vitamin D (cholecalciferol) 1,000 unit tablet PO SCH (07:43)
[2017-11-13] MEDS: cyanocobalamin 500mcg tablet PO SCH (07:44)
[2017-11-13] MEDS: furosemide 40mg/4ml inj IV SCH ×2 (07:44→20:01)
[2017-11-13] MEDS: levoTHYROXINE 100mcg tablet PO SCH (07:44)
[2017-11-13] MEDS: lisinopril 2.5mg tablet PO SCH ×2 (07:45→11:05)
[2017-11-13] MEDS: potassium Cl oral solution 20 MEQ/15 ML PO SCH (07:48)
[2017-11-13] MEDS: K and/or MAG REPLACEMENT MC SCH ×2 (07:56)
[2017-11-13] MEDS: calcium carbonate/vitamin D3 tablet PO SCH ×2 (08:16→20:01)
[2017-11-13] MEDS ORDERED: ampicillin inj 2 GM in normal saline 100ml IV soln 100 ML IV ONE (08:20)
[2017-11-13 09:27] LABS: TOTAL CELLS COUNTED 100
[2017-11-13 09:28] LABS: ANISOCYTOSIS 2+; ELLIPTOCYTES 1+; PLATELET ESTIMATE DECREASED; POLYCHROMASIA 1+; SPHEROCYTES FEW
[2017-11-13] MEDS ORDERED: levoFLOXACIN 750MG TABLET PO SCH (10:20)
[2017-11-13 11:06] VITALS: BP 93/54
[2017-11-13] MEDS: acetaminophen 325mg tablet PO PRN (14:30)
[2017-11-13 20:00] VITALS: BP 90/58
[2017-11-13] MEDS: atorvastatin 10mg tablet PO SCH (21:50)
== END 2017-11-13 23:23 | DRG 314 ==
LOC: ER 09:58 → ED HOLD 13:00 → PCU 3S 20:40 → SUR 3N 10-30 16:28 → MED 3N 11-04 18:17
PROVIDERS: ADMIT Family Medicine; ATTEND Internal Medicine
PROC: 30233N1 Transfusion of Nonautologous Red Blood Cells into Peripheral Vein, Percutaneous Approach (ICD-10-PCS; principal; 2017-10-17)
PROC: 02HV33Z Insertion of Infusion Device into Superior Vena Cava, Percutaneous Approach (ICD-10-PCS; 2017-10-27)
PROC: B548ZZA Ultrasonography of Superior Vena Cava, Guidance (ICD-10-PCS; 2017-10-27)
DX: T82.6XXA Infection and inflammatory reaction due to cardiac valve prosthesis, initial encounter (principal); A41.89 Other specified sepsis; E43 Unspecified severe protein-calorie malnutrition; J15.6 Pneumonia due to other Gram-negative bacteria; I47.2 Ventricular tachycardia; D69.6 Thrombocytopenia, unspecified; E87.1 Hypo-osmolality and hyponatremia; N18.3 Chronic kidney disease, stage 3 (moderate); I50.43 Acute on chronic combined systolic (congestive) and diastolic (congestive) heart failure; I33.0 Acute and subacute infective endocarditis; I13.0 Hypertensive heart and chronic kidney disease with heart failure and stage 1 through stage 4 chronic kidney disease, or unspecified chronic kidney disease; I48.91 Unspecified atrial fibrillation; E78.00 Pure hypercholesterolemia, unspecified; E55.9 Vitamin D deficiency, unspecified; I49.5 Sick sinus syndrome; E78.5 Hyperlipidemia, unspecified; E87.6 Hypokalemia; E03.8 Other specified hypothyroidism; H91.90 Unspecified hearing loss, unspecified ear; M85.80 Other specified disorders of bone density and structure, unspecified site; Y83.8 Other surgical procedures as the cause of abnormal reaction of the patient, or of later complication, without mention of misadventure at the time of the procedure; D64.9 Anemia, unspecified; B96.89 Other specified bacterial agents as the cause of diseases classified elsewhere; Z95.0 Presence of cardiac pacemaker; Z95.2 Presence of prosthetic heart valve; Z90.710 Acquired absence of both cervix and uterus; Z90.49 Acquired absence of other specified parts of digestive tract; Z88.6 Allergy status to analgesic agent; Z88.8 Allergy status to other drugs, medicaments and biological substances; Z88.1 Allergy status to other antibiotic agents; Z88.0 Allergy status to penicillin; Z79.899 Other long term (current) drug therapy; Z79.01 Long term (current) use of anticoagulants; Z85.850 Personal history of malignant neoplasm of thyroid; Z86.72 Personal history of thrombophlebitis; Z82.49 Family history of ischemic heart disease and other diseases of the circulatory system; Z82.3 Family history of stroke; Z68.30 Body mass index [BMI] 30.0-30.9, adult; Y92.89 Other specified places as the place of occurrence of the external cause
CPT/HCPCS: 36415; 36569; 71045; 71046; 76937; 80048; 80053; 80170; 81001; 81003; 82948; 83540; 83550; 83605; 83735; 83880; 84132; 84145; 84439; 84443; 84484; 85025; 85027; 85651; 86140; 86885; 86900; 86901; 86922; 87040; 87070; 87077; 87186; 93005; 93306; 97110; 97116; 97161; 97164; 97530; 99285; A4333; A6212; A6213; A6257; A6258; J0290; J0696; J1580; J1650; J1940; J2405; J3370; J3475; J3480; J3490; J7030; J7060; P9016; Q0163